=== PATIENT | female | born 1970 | race African-American/Black ===

== ENCOUNTER 2019-06-12 23:22 | Inpatient (IN) | payer OTHER ==
[~2019-06-12] VITALS: Ht 162.6 cm; Wt 113.6 kg
[~2019-06-12 23:22] MED LIST: ALBU2.5V8 INH; AMIT25TA PO; AMLO5TAB10 PO; ASPI-612 PO; BACL10TA PO; CARV12.511 PO; HYDR-2145 PO; ISOS30TA4 PO; LISI10TA2 PO; NAPR-514 PO; NITR0.4T24 SL; POTA20TA4 PO; PRED20TA PO; SERT100T8 PO; TRAZ-118 PO; VENTOLIN HFA18 GM INH
--- NOTE | 2019-06-12 23:35 | PHYS DOC ---
Past Medical History Past Medical History: Angina, Anxiety, Arthritis, Asthma, CHF, COPD, Depression, Hypertension Additional Past Medical Histor: insomnia, Left BBB, stable angina Past Surgical History: Hysterectomy, Other Additional Past Surgical Histo: 2 heart cath without stents, bilat knee repair, PACEMAKER Smoking Status: Current Every Day Smoker Alcohol Use: None Drug Use: None Adult General Chief Complaint Chief Complaint: SHORTNESS OF BREATH HPI HPI 48-year-old female with underlying history of COPD, congestive heart failure, hypertension, PPM placement presents to the emergency department via EMS with complaints of shortness of breath. Patient states she's had shortness of breath over the last couple days worsening today around 10:30 or so. She describes cough, fever, yellow sputum production. States she attempted to use nebulizer t reatments at home however unsuccessful. EMS was called secondary to continued shortness of breath. Upon EMS arrival, room air saturations 88%, attempted nebulizer however patient intolerable. Patient placed on BiPAP with improvement of oxygen saturations 97%. She continues to have tachypnea on examination saturation 90% on room air, 2 L of oxygen applied, respiratory rate in 30s. She denies any chest pain on examination. Nothing makes her symptoms worse, nothing makes her symptoms better. Patient has had some vomiting associated with coughing. Review of Systems Review of Systems Constitutional: fever HENT: nasal congestion Respiratory: Cough/SOB Cardiovascular: No additional information not addressed in HPI [] GI: Denies abdominal pain, nausea, + vomiting, no bloody stools or diarrhea [] : Denies dysuria or hematuria [] Musculoskeletal: Denies back pain or joint pain [] Neurologic: Denies headache, focal weakness or sensory changes [] All other systems were reviewed and found to be within normal limits, except as documented in this note. Current Medications Current Medications Current Medications Medications (Trade) Dose Ordered Sig/Kary Start Time Stop Time Status Last Admin Dose Admin Albuterol/ Ipratropium (Duoneb) 3 ml 1X ONCE 06/12/19 23:45 06/12/19 23:46 DC 06/13/19 00:04 3 ML Furosemide (Lasix) 60 mg 1X ONCE 06/13/19 00:30 06/13/19 00:31 UNV Hydralazine HCl (Apresoline Inj) 10 mg 1X ONCE 06/12/19 23:45 06/12/19 23:46 DC 06/12/19 23:55 10 MG Levofloxacin/ Dextrose 150 ml @ 100 mls/hr 1X ONCE 06/13/19 00:30 06/13/19 01:59 UNV Methylprednisolone Sodium Succinate (SOLU-Medrol 125MG VIAL) 125 mg 1X ONCE 06/12/19 23:45 06/12/19 23:46 DC 06/12/19 23:55 125 MG Allergies Allergies Allergies Coded Allergies Type Severity Reaction Last Updated Verified iodine Allergy Severe IV dye, anaphylaxis 01/29/14 Yes isosorbide Allergy Mild 03/21/16 Yes Physical Exam Physical Exam Constitutional: Well developed, well nourished, mod resp distress, non-toxic appearance. [] HENT: Normocephalic, atraumatic, bilateral external ears normal, oropharynx moist, no oral exudates, nose normal. [] Eyes: PERRLA, EOMI, conjunctiva normal, no discharge. [] Cardiovascular: Tachycardia Lungs & Thorax: exp wheeze, coarse BS throughout Abdomen: Bowel sounds normal, soft, no tenderness, no masses, no pulsatile masses. [] Skin: Warm, dry, no erythema, no rash. [] Extremities: No tenderness, trace edema. [] Neurologic: Alert and oriented X 3, no focal deficits noted. [] Psychologic: Affect normal, judgement normal, mood normal. [] Current Patient Data Vital Signs Vital Signs Date Time Temp Pulse Resp B/P (MAP) Pulse Ox O2 Delivery O2 Flow Rate FiO2 06/13/19 00:05 96 Nasal Cannula 3.0 06/12/19 23:55 99 183/88 06/12/19 23:25 99.1 24 99.1 Lab Values Laboratory Tests Test 06/12/19 23:45 06/12/19 23:48 Influenza Type A Antigen Negative (NEGATIVE) Influenza Type B Antigen Negative (NEGATIVE) White Blood Count 9.2 x10^3/uL (4.0-11.0) Red Blood Count 5.38 x10^6/uL (3.50-5.40) Hemoglobin 14.6 g/dL (12.0-15.5) Hematocrit 44.6 % (36.0-47.0) Mean Corpuscular Volume 83 fL (79-100) Mean Corpuscular Hemoglobin 27 pg (25-35) Mean Corpuscular Hemoglobin Concent 33 g/dL (31-37) Red Cell Distribution Width 14.7 % (11.5-14.5) H Platelet Count 200 x10^3/uL (140-400) Neutrophils (%) (Auto) 81 % (31-73) H Lymphocytes (%) (Auto) 11 % (24-48) L Monocytes (%) (Auto) 7 % (0-9) Eosinophils (%) (Auto) 0 % (0-3) Basophils (%) (Auto) 1 % (0-3) Neutrophils # (Auto) 7.4 x10^3/uL (1.8-7.7) Lymphocytes # (Auto) 1.0 x10^3/uL (1.0-4.8) Monocytes # (Auto) 0.6 x10^3/uL (0.0-1.1) Eosinophils # (Auto) 0.0 x10^3/uL (0.0-0.7) Basophils # (Auto) 0.1 x10^3/uL (0.0-0.2) D-Dimer (Charity) 0.53 ug/mlFEU (0.00-0.50) H Sodium Level 140 mmol/L (136-145) Potassium Level 3.5 mmol/L (3.5-5.1) Chloride Level 102 mmol/L (98-107) Carbon Dioxide Level 28 mmol/L (21-32) Anion Gap 10 (6-14) Blood Urea Nitrogen 13 mg/dL (7-20) Creatinine 1.0 mg/dL (0.6-1.0) Estimated GFR (Cockcroft-Gault) 71.3 BUN/Creatinine Ratio 13 (6-20) Glucose Level 124 mg/dL (70-99) H Calcium Level 8.6 mg/dL (8.5-10.1) Total Bilirubin 0.2 mg/dL (0.2-1.0) Aspartate Amino Transferase (AST) 25 U/L (15-37) Alanine Aminotransferase (ALT) 54 U/L (14-59) Alkaline Phosphatase 85 U/L (46-116) Troponin I Quantitative 0.022 ng/mL (0.000-0.055) LI-Baq-J-Type Natriuretic Peptide 2195 pg/mL (0-124) H Total Protein 6.8 g/dL (6.4-8.2) Albumin 3.5 g/dL (3.4-5.0) Albumin/Globulin Ratio 1.1 (1.0-1.7) Laboratory Tests 06/12/19 23:48 Laboratory Tests 06/12/19 23:48 EKG EKG EKG reviewed 2358, no STEMI, normal axis, sinus rhythm, heart rate 98, no STEMI[] Radiology/Procedures Radiology/Procedures Chest x-ray wet reading reveals evidence of pulmonary edema, bilateral consolidations[] Course & Med Decision Making Course & Med Decision Making Pertinent Labs and Imaging studies reviewed. (See chart for details) []48-year-old female with underlying history of COPD, congestive heart failure, hypertension, PPM placement presents to the emergency department via EMS with complaints of shortness of breath. Patient states she's had shortness of breath over the last couple days worsening today around 10:30 or so. She describes cough, fever, yellow sputum production. States she attempted to use nebulizer treatments at home however unsuccessful. EMS was called secondary to continued shortness of breath. Upon EMS arrival, room air saturations 88%, attempted nebulizer however patient intolerable. Patient placed on BiPAP with improvement of oxygen saturations 97%. She continues to have tachypnea on examination saturation 90% on room air, 2 L of oxygen applied, respiratory rate in 30s. Patient has had some vomiting associated with coughing ABG 7.40, PCO2 36, PO2 55, bicarbonate 28 Patient increased to 4 L nasal cannula saturations 95-97% She received DuoNeb treatment, Solu-Medrol, Lasix 60 mg IV with improvement of tachypnea as well as respiratory distress Labs reviewed white blood cell count 9.2, HemoCue 14.6, d-dimer mildly elevated 0.53, BNP >2000 Plan admit the patient we'll trend her cardiac enzymes, given her d-dimer elevation and alert iodine we'll plan for VQ scan tomorrow. Lovenox 1 mg/kg subcutaneous 1 Discussed findings with patient we'll plan for admission Dragon Disclaimer Dragon Disclaimer This electronic medical record was generated, in whole or in part, using a voice recognition dictation system. Departure Departure Impression: Primary Impression: Acute CHF Additional Impressions: PNA (pneumonia) Elevated d-dimer Hypertension Disposition: ADMITTED INPATIENT Admitting Physician: HIMS Condition: IMPROVED Critical Care Time Critical care time was 40 minutes exclusive of procedures. Problem Qualifiers Primary Impression: Acute CHF Heart failure type: unspecified Qualified Codes: I50.9 - Heart failure, unspecified Additional Impressions: PNA (pneumonia) Pneumonia type: due to unspecified organism Laterality: bilateral Lung location: lower lobe of lung Qualified Codes: J18.9 - Pneumonia, unspecified organism Hypertension Hypertension type: essential hypertension Qualified Codes: I10 - Essential (primary) hypertension RODNEY MCDANIEL MD Jun 12, 2019 23:35
[2019-06-12] MEDS ORDERED: hydrALAZINE 20 MG/ML VIAL. IVP ONE (23:45)
[2019-06-12] MEDS ORDERED: IPRATRPIUM/ALBUTEROL 0.5/2.5MG 3 ML NEBU. NEB ONE (23:45)
[2019-06-12] MEDS ORDERED: methylPREDNISolone SOD SUCC PF 125 MG/2 ML VIAL. IV ONE (23:45)
[2019-06-12 23:57] LABS: BASO # 0.1 x10^3/uL (0.0-0.2); BASO % 1 % (0-3); EOS % 0 % (0-3); HEMATOCRIT 44.6 % (36.0-47.0); HEMOGLOBIN 14.6 g/dL (12.0-15.5); LYMPH % 11 % (24-48); MEAN CORPUSCULAR HEMOGLOBIN 27 pg (25-35); MEAN CORPUSCULAR HGB CONC 33 g/dL (31-37); MEAN CORPUSCULAR VOLUME 83 fL (79-100); MONO # 0.6 x10^3/uL (0.0-1.1); MONO % 7 % (0-9); NEUT # 7.4 x10^3/uL (1.8-7.7); NEUT % 81 % (31-73); PLATELET COUNT 200 x10^3/uL (140-400); RED BLOOD COUNT 5.38 x10^6/uL (3.50-5.40); RED CELL DISTRIBUTION WIDTH 14.7 % (11.5-14.5); WHITE BLOOD COUNT 9.2 x10^3/uL (4.0-11.0)
[2019-06-13 00:06] LABS: CALCIUM 8.6 mg/dL (8.5-10.1); GFR 71.3; POTASSIUM 3.5 mmol/L (3.5-5.1)
[2019-06-13 00:09] LABS: INFLUENZA A PATIENT NEGATIVE (NEGATIVE); INFLUENZA B PATIENT NEGATIVE (NEGATIVE)
[2019-06-13 00:14] LABS: ALBUMIN 3.5 g/dL (3.4-5.0); ALBUMIN/GLOBULIN RATIO 1.1 (1.0-1.7); TOTAL BILIRUBIN 0.2 mg/dL (0.2-1.0); TOTAL PROTEIN 6.8 g/dL (6.4-8.2)
--- NOTE | 2019-06-13 00:41 | RAD ---
PORTABLE CHEST 1V Clinical History: Dyspnea Technique: AP view of the chest was obtained at 06/12/2019 11:28 PM. Comparison: March 21, 2016. Findings: The heart is moderately enlarged. The pulmonary vessels are somewhat cephalized and there is patchy opacities in the lung bases. There is a left-sided defibrillator again seen. Impression: Moderate cardiomegaly and bilateral infiltrates likely CHF. Electronically signed by: Esvin Linares III, MD (06/13/2019 12:38 AM) [id number]
[2019-06-13] MEDS ORDERED: MORPHINE SULFATE 2 MG/ML VIAL. IV PRN (00:45)
[2019-06-13] MEDS ORDERED: ONDANSETRON PF 4 MG/2 ML VIAL. IV PRN (00:45)
[2019-06-13] MEDS ORDERED: FUROSEMIDE 40 MG/4 ML VIAL. IVP ONE (00:45)
[2019-06-13 01:20] LABS: BILIRUBIN,URINE NEGATIVE (NEG); CLARITY,URINE CLOUDY; COLOR,URINE YELLOW; NITRITE,URINE NEGATIVE (NEG); PH,URINE 6.5; PROTEIN,URINE NEGATIVE (NEG-TRACE); UROBILINOGEN,URINE 0.2 mg/dL (0.2 mg/dL)
[2019-06-13 01:25] LABS: BACTERIA,URINE 0 /HPF (0-FEW); RBC,URINE OCC /HPF (0-2); SQUAMOUS EPITHELIAL CELL,UR MOD /LPF; TRICHOMONAS,URINE PRESENT
[2019-06-13 02:54] VITALS: BP 153/80
[2019-06-13] MEDS ORDERED: CARV25TA2 PO (03:07)
[2019-06-13] MEDS ORDERED: MONT10TA11 PO (03:07)
[2019-06-13] MEDS ORDERED: LOSA100T14 PO (03:07)
[2019-06-13] MEDS ORDERED: ATOR80TA72 PO (03:07)
[2019-06-13] MEDS ORDERED: TIOT18CA INH (03:07)
[2019-06-13] MEDS ORDERED: FURO20TA3 PO (03:07)
[2019-06-13] MEDS ORDERED: PARO20TA3 PO (03:07)
[2019-06-13] MEDS ORDERED: MOME13HF INH (03:07)
[2019-06-13 05:02] LABS: BASE EXCESS ABG -2 mmol/L (-3-3); HCO3 ABG 22 mmol/L (21-28); PCO2 ABG 37 mmHg (35-46); PO2 ABG 56 mmHg (75-108); SAT O2 ABG 89 % (92-99)
[2019-06-13 07:00] VITALS: BP 158/77
[2019-06-13] MEDS ORDERED: IPRATRPIUM/ALBUTEROL 0.5/2.5MG 3 ML NEBU. NEB SCH (08:00)
--- NOTE | 2019-06-13 09:59 | RAD ---
Examination: Ventilation/perfusion lung scan Clinical history: shortness of breath COMPARISON: 06/13/2019 chest x-ray TECHNIQUE: 13 mCi of xenon-133 was administered as an aerosol and spot views were obtained on a gamma camera for a nuclear medicine ventilation examination. 5.5 mCi of Tc 99m MAA was administered intravenously and spot views were obtained the gamma camera for a nuclear medicine perfusion examination. Static images were reviewed as a V/Q scan in order to exclude pulmonary embolism. FINDINGS: There is mild diffuse heterogeneity of activity on the ventilation study. There is mild residual activity on the washout phases, suggesting possible air trapping. Perfusion images show 2 large wedge-shaped mismatched defects, most conspicuous in the lingula and in the superior segment right lower lobe. This is borderline high probability (approximately 80 percent) for pulmonary embolism based on the modified PIOPED criteria. Impression: Borderline high probability for pulmonary embolism. FOR INTERNAL CODING PURPOSES Critical result: Findings discussed with patient's nurse Marisa who took the report on behalf of RODNEY MCDANIEL at 06/13/2019 9:52 AM. RESULT CODE: (C) Electronically signed by: Espinoza Mark MD (06/13/2019 9:56 AM) [facility]
[2019-06-13] MEDS ORDERED: ALBUTEROL SULFATE 2.5 MG/3 ML NEBU. INH PRN ×2 (10:00→11:45)
[2019-06-13] MEDS ORDERED: NITROGLYCERIN SUBLINGUAL 0.4 MG BOTTLE OF 25. SL PRN (10:00)
[2019-06-13] MEDS ORDERED: traZODone 50 MG TABLET. PO PRN (10:00)
[2019-06-13] MEDS: BUMETANIDE 1 MG/4 ML VIAL. IV SCH ×2 (10:58→16:13)
[2019-06-13 11:00] VITALS: BP 187/78
[2019-06-13] MEDS: IPRATRPIUM/ALBUTEROL 0.5/2.5MG 3 ML NEBU. NEB SCH ×3 (11:11→20:12)
--- NOTE | 2019-06-13 11:18 | PDOC1 ---
History and Physical Date of Admission Date of Admission 06/13/2019 Identification/Chief Complaint Problems: (1) Acute CHF Source Source: Chart review, Patient History of Present Illness History of Present Illness Patient is a 48-year-old female with past medical history of congestive heart failure hypertension COPD permanent pacemaker who comes complaining of shortness of breath. Patient refers having noticed worsening of her dyspnea over the last 3 days prior to her admission. She denies sick contacts nevertheless she has been having diaphoresis no fever has been quantified at home. She does report dietary transgressions and medication nonadherence. She tried to self medicate at home with nebulization therapy nevertheless her dyspnea got worse reason why she decided to call EMS yesterday when she could not open "catch her breath". In the emergency department recorded that her oxygen saturation was 88% she was placed on BiPAP at that time which patient tells me she could not stand. She denies any chest discomfort no palpitations no nausea vomiting no sensation of impending doom except when placed on BiPAP machine. At the time my evaluation the patient is much more awake and with easier brought work of breathing. She is not on BiPAP at time my evaluation she denies chest pain no nausea no vomiting no other symptoms reported. Results of her testing were discussed with the patient plan of care explained detail reassurance has been provided Past Medical History Cardiovascular: CHF, HTN Pulmonary: COPD Current Problem List Problem List Problems Medical Problems: (1) Acute CHF Status: Acute (2) Elevated d-dimer Status: Acute (3) Hypertension Status: Acute (4) PNA (pneumonia) Status: Acute Current Medications Current Medications Current Medications Medications (Trade) Dose Ordered Sig/Kary Start Time Stop Time Status Last Admin Dose Admin Albuterol Sulfate (Ventolin Neb Soln) 8.5 mg PRN Q4HRS PRN 06/13/19 10:00 Albuterol/ Ipratropium (Duoneb) 3 ml RTQID 06/13/19 12:00 Amitriptyline HCl (Elavil) 25 mg HS 06/13/19 21:00 Atorvastatin Calcium (Lipitor) 80 mg QHS 06/13/19 21:00 Budesonide (Pulmicort) 0.5 mg RTBID 06/13/19 12:00 Bumetanide (Bumex) 1 mg [id number] 06/13/19 10:00 06/13/19 10:58 1 MG Carvedilol (Coreg) 25 mg [id number] 06/13/19 11:00 Cyclobenzaprine HCl (Flexeril) 10 mg TID 06/13/19 14:00 Enoxaparin Sodium (Lovenox 100mg Syringe) 100 mg Q12HR 06/13/19 10:00 06/13/19 10:58 100 MG Furosemide (Lasix) 60 mg 1X ONCE 06/13/19 00:45 06/13/19 00:46 DC 06/13/19 01:19 60 MG Hydralazine HCl (Apresoline Inj) 10 mg 1X ONCE 06/12/19 23:45 06/12/19 23:46 DC 06/12/19 23:55 10 MG Levofloxacin/ Dextrose 150 ml @ 100 mls/hr 1X ONCE 06/13/19 00:45 06/13/19 02:14 DC 06/13/19 01:17 100 MLS/HR Losartan Potassium (Cozaar) 100 mg DAILY 06/13/19 11:00 Methylprednisolone Sodium Succinate (SOLU-Medrol 125MG VIAL) 125 mg 1X ONCE 06/12/19 23:45 06/12/19 23:46 DC 06/12/19 23:55 125 MG Montelukast Sodium (Singulair) 10 mg HS 06/13/19 21:00 Morphine Sulfate (Morphine Sulfate) 2 mg PRN Q2HR PRN 06/13/19 00:45 06/14/19 00:44 Naproxen (Naprosyn) 500 mg PRN Q12HR PRN 06/13/19 10:00 Nitroglycerin (Nitrostat) 0.4 mg PRN Q5MIN PRN 06/13/19 10:00 Non-Formulary Medication (Mometasone/ Formoterol (Dulera 200 Mcg/5 Mcg Inhaler)) 1 puff BID 06/13/19 21:00 UNV Non-Formulary Medication (Tiotropium [place] (Spiriva)) 1 puff DAILY 06/14/19 09:00 UNV Ondansetron HCl (Zofran) 4 mg PRN Q8HRS PRN 06/13/19 00:45 06/14/19 00:44 Paroxetine HCl (Paxil) 20 mg DAILY 06/13/19 11:00 Potassium Chloride (Klor-Con) 20 meq DAILY 06/13/19 11:00 Trazodone HCl (Desyrel) 25 mg PRN QHS PRN 06/13/19 10:00 Allergies Allergies Allergies Coded Allergies Type Severity Reaction Last Updated Verified iodine Allergy Severe IV dye, anaphylaxis 01/29/14 Yes isosorbide Allergy Mild 03/21/16 Yes ROS Review of System CONSTITUTIONAL: No fever or chills EYES: No recent changes SKIN: No rash or itching CARDIOVASCULAR: No chest pain, syncope, palpitations, or edema RESPIRATORY: No SOB or cough GASTROINTESTINAL: No nausea, vomiting or abdominal pain NEUROLOGICAL: No headaches or weakness ENDOCRINE: No cold or heat intolerance GENITOURINARY: No urgency or frequency of urination MUSCULOSKELETAL: No back pain or joint pain LYMPHATICS: No enlarged lymph nodes PSYCHIATRIC: No anxiety or depression Physical Exam Physical Exam Gen.: well-developed well-nourished in no apparent distress Head: Normal shape atraumatic Eyes: Pupils equal reactive to light and accommodation, normal conjunctivae and lids Ears: Normal shape Nose: Normal shape no trauma Mouth: No exudates of the back of throat no thrush no lesions Neck: Supple no JVD no carotid bruit or lymphadenopathy no thyromegaly Chest: Lungs clear to auscultation with good inspiratory effort no crackles rales or rhonchi Cardiovascular: S1-S2 regular rhythm no murmurs gallops or rubs Abdomen: Bowel sounds present soft nontender no hepatosplenomegaly appreciated sign Extremities: No clubbing no cyanosis no edema peripheral pulses palpated bilaterally Neurological: Alert awake oriented in person time place and situation, cranial nerves II through XII intact, no motor or sensory deficits appreciated Psych: Appropriate mood, cooperative Vitals Vitals Vital Signs Date Time Temp Pulse Resp B/P (MAP) Pulse Ox O2 Delivery O2 Flow Rate FiO2 06/13/19 08:04 96 Nasal Cannula 3.0 06/13/19 07:00 98.7 83 18 158/77 (104) 98.7 Labs Labs Laboratory Tests Test 06/12/19 23:30 06/12/19 23:45 06/12/19 23:48 06/13/19 01:05 O2 Saturation 89 % (92-99) Arterial Blood pH 7.40 (7.35-7.45) Arterial Blood pCO2 at Patient Temp 37 mmHg (35-46) Arterial Blood pO2 at Patient Temp 56 mmHg (75-108) Arterial Blood HCO3 22 mmol/L (21-28) Arterial Blood Base Excess -2 mmol/L (-3-3) Influenza Type A Antigen Negative (NEGATIVE) Influenza Type B Antigen Negative (NEGATIVE) White Blood Count 9.2 x10^3/uL (4.0-11.0) Red Blood Count 5.38 x10^6/uL (3.50-5.40) Hemoglobin 14.6 g/dL (12.0-15.5) Hematocrit 44.6 % (36.0-47.0) Mean Corpuscular Volume 83 fL (79-100) Mean Corpuscular Hemoglobin 27 pg (25-35) Mean Corpuscular Hemoglobin Concent 33 g/dL (31-37) Red Cell Distribution Width 14.7 % (11.5-14.5) Platelet Count 200 x10^3/uL (140-400) Neutrophils (%) (Auto) 81 % (31-73) Lymphocytes (%) (Auto) 11 % (24-48) Monocytes (%) (Auto) 7 % (0-9) Eosinophils (%) (Auto) 0 % (0-3) Basophils (%) (Auto) 1 % (0-3) Neutrophils # (Auto) 7.4 x10^3/uL (1.8-7.7) Lymphocytes # (Auto) 1.0 x10^3/uL (1.0-4.8) Monocytes # (Auto) 0.6 x10^3/uL (0.0-1.1) Eosinophils # (Auto) 0.0 x10^3/uL (0.0-0.7) Basophils # (Auto) 0.1 x10^3/uL (0.0-0.2) D-Dimer (Charity) 0.53 ug/mlFEU (0.00-0.50) Sodium Level 140 mmol/L (136-145) Potassium Level 3.5 mmol/L (3.5-5.1) Chloride Level 102 mmol/L (98-107) Carbon Dioxide Level 28 mmol/L (21-32) Anion Gap 10 (6-14) Blood Urea Nitrogen 13 mg/dL (7-20) Creatinine 1.0 mg/dL (0.6-1.0) Estimated GFR (Cockcroft-Gault) 71.3 BUN/Creatinine Ratio 13 (6-20) Glucose Level 124 mg/dL (70-99) Calcium Level 8.6 mg/dL (8.5-10.1) Total Bilirubin 0.2 mg/dL (0.2-1.0) Aspartate Amino Transf (AST/SGOT) 25 U/L (15-37) Alanine Aminotransferase (ALT/SGPT) 54 U/L (14-59) Alkaline Phosphatase 85 U/L (46-116) Troponin I Quantitative 0.022 ng/mL (0.000-0.055) OW-Twf-F-Type Natriuretic Peptide 2195 pg/mL (0-124) Total Protein 6.8 g/dL (6.4-8.2) Albumin 3.5 g/dL (3.4-5.0) Albumin/Globulin Ratio 1.1 (1.0-1.7) Urine Collection Type Unknown Urine Color Yellow Urine Clarity Cloudy Urine pH 6.5 Urine Specific [place] 1.010 Urine Protein Negative mg/dL (NEG-TRACE) Urine Glucose (UA) Negative mg/dL (NEG) Urine Ketones (Stick) Negative mg/dL (NEG) Urine Blood Negative (NEG) Urine Nitrite Negative (NEG) Urine Bilirubin Negative (NEG) Urine Urobilinogen Dipstick 0.2 mg/dL (0.2 mg/dL) Urine Leukocyte Esterase Negative (NEG) Urine RBC Occ /HPF (0-2) Urine WBC 1-4 /HPF (0-4) Urine Squamous Epithelial Cells Mod /LPF Urine Bacteria 0 /HPF (0-FEW) Urine Mucus Slight /LPF Urine Trichomonas Present Test 06/13/19 07:15 Troponin I Quantitative < 0.017 ng/mL (0.000-0.055) Laboratory Tests Test 06/12/19 23:30 06/12/19 23:45 06/12/19 23:48 06/13/19 01:05 O2 Saturation 89 % (92-99) Arterial Blood pH 7.40 (7.35-7.45) Arterial Blood pCO2 at Patient Temp 37 mmHg (35-46) Arterial Blood pO2 at Patient Temp 56 mmHg (75-108) Arterial Blood HCO3 22 mmol/L (21-28) Arterial Blood Base Excess -2 mmol/L (-3-3) Influenza Type A Antigen Negative (NEGATIVE) Influenza Type B Antigen Negative (NEGATIVE) White Blood Count 9.2 x10^3/uL (4.0-11.0) Red Blood Count 5.38 x10^6/uL (3.50-5.40) Hemoglobin 14.6 g/dL (12.0-15.5) Hematocrit 44.6 % (36.0-47.0) Mean Corpuscular Volume 83 fL (79-100) Mean Corpuscular Hemoglobin 27 pg (25-35) Mean Corpuscular Hemoglobin Concent 33 g/dL (31-37) Red Cell Distribution Width 14.7 % (11.5-14.5) Platelet Count 200 x10^3/uL (140-400) Neutrophils (%) (Auto) 81 % (31-73) Lymphocytes (%) (Auto) 11 % (24-48) Monocytes (%) (Auto) 7 % (0-9) Eosinophils (%) (Auto) 0 % (0-3) Basophils (%) (Auto) 1 % (0-3) Neutrophils # (Auto) 7.4 x10^3/uL (1.8-7.7) Lymphocytes # (Auto) 1.0 x10^3/uL (1.0-4.8) Monocytes # (Auto) 0.6 x10^3/uL (0.0-1.1) Eosinophils # (Auto) 0.0 x10^3/uL (0.0-0.7) Basophils # (Auto) 0.1 x10^3/uL (0.0-0.2) D-Dimer (Charity) 0.53 ug/mlFEU (0.00-0.50) Sodium Level 140 mmol/L (136-145) Potassium Level 3.5 mmol/L (3.5-5.1) Chloride Level 102 mmol/L (98-107) Carbon Dioxide Level 28 mmol/L (21-32) Anion Gap 10 (6-14) Blood Urea Nitrogen 13 mg/dL (7-20) Creatinine 1.0 mg/dL (0.6-1.0) Estimated GFR (Cockcroft-Gault) 71.3 BUN/Creatinine Ratio 13 (6-20) Glucose Level 124 mg/dL (70-99) Calcium Level 8.6 mg/dL (8.5-10.1) Total Bilirubin 0.2 mg/dL (0.2-1.0) Aspartate Amino Transf (AST/SGOT) 25 U/L (15-37) Alanine Aminotransferase (ALT/SGPT) 54 U/L (14-59) Alkaline Phosphatase 85 U/L (46-116) Troponin I Quantitative 0.022 ng/mL (0.000-0.055) SY-Mob-M-Type Natriuretic Peptide 2195 pg/mL (0-124) Total Protein 6.8 g/dL (6.4-8.2) Albumin 3.5 g/dL (3.4-5.0) Albumin/Globulin Ratio 1.1 (1.0-1.7) Urine Collection Type Unknown Urine Color Yellow Urine Clarity Cloudy Urine pH 6.5 Urine Specific [place] 1.010 Urine Protein Negative mg/dL (NEG-TRACE) Urine Glucose (UA) Negative mg/dL (NEG) Urine Ketones (Stick) Negative mg/dL (NEG) Urine Blood Negative (NEG) Urine Nitrite Negative (NEG) Urine Bilirubin Negative (NEG) Urine Urobilinogen Dipstick 0.2 mg/dL (0.2 mg/dL) Urine Leukocyte Esterase Negative (NEG) Urine RBC Occ /HPF (0-2) Urine WBC 1-4 /HPF (0-4) Urine Squamous Epithelial Cells Mod /LPF Urine Bacteria 0 /HPF (0-FEW) Urine Mucus Slight /LPF Urine Trichomonas Present Test 06/13/19 07:15 Troponin I Quantitative < 0.017 ng/mL (0.000-0.055) VTE Prophylaxis Ordered VTE Prophylaxis Devices: No VTE Pharmacological Prophylaxi: Yes Assessment/Plan Assessment/Plan Acute exacerbation of congestive heart failure suspect systolic dysfunction VQ scan with high probability of pulmonary embolism History of tobacco abuse and subsequent COPD Essential hypertension Mild elevation of troponin most likely demand ischemia and most likely secondary to pulmonary emboli Unable to perform CTA due to iodine allergy Plan: Diuretic therapy We'll start Lovenox We'll discuss with patient possibility of transitioning to an anti-10 A agent for ease of use Resume home medications Monitor respiratory status Further recommendations based on the clinical course Dietary counseling done DVT prophylaxis: Patient on full dose of Lovenox Problem Qualifiers (1) Acute CHF: Heart failure type: unspecified Qualified Codes: I50.9 - Heart failure, unspecified MARINA MEDINA MD Jun 13, 2019 11:18
[2019-06-13] MEDS: PARoxetine 20 MG TABLET PO SCH (11:33)
[2019-06-13] MEDS: LOSARTAN POTASSIUM 50 MG TABLET. PO SCH (11:33)
[2019-06-13] MEDS: POTASSIUM CHLORIDE 20 MEQ TABLET.ER. PO SCH (11:33)
[2019-06-13] MEDS: CARVEDILOL 12.5 MG TABLET. PO SCH ×2 (11:34→17:51)
[2019-06-13] MEDS: CYCLOBENZAPRINE 10 MG TABLET. PO SCH ×2 (14:00→21:02)
[2019-06-13 15:00] VITALS: BP 161/78
[2019-06-13] MEDS: BUDESONIDE 0.5 MG/2 ML NEBU. NEB SCH ×2 (15:20→20:12)
[2019-06-13 19:00] VITALS: BP 120/84
[2019-06-13] MEDS ORDERED: NON FORMULARY ITEM (Mometasone/Formoterol (Dulera 200 Mcg/5 Mcg Inhaler) 1 PUFF) INH SCH (21:00)
[2019-06-13] MEDS: AMITRIPTYLINE HCL 25 MG TABLET. PO SCH (21:02)
[2019-06-13] MEDS: ATORVASTATIN CALCIUM 40 MG TABLET. PO SCH (21:02)
[2019-06-13] MEDS: MONTELUKAST SODIUM 10 MG TABLET. PO SCH (21:02)
[2019-06-13 23:13] VITALS: BP 136/68
[2019-06-14 03:00] VITALS: BP 132/66
[2019-06-14 05:25] LABS: BASO % 0 % (0-3); EOS % 0 % (0-3); HEMATOCRIT 47.1 % (36.0-47.0); HEMOGLOBIN 15.4 g/dL (12.0-15.5); LYMPH # 1.2 x10^3/uL (1.0-4.8); LYMPH % 16 % (24-48); MEAN CORPUSCULAR HEMOGLOBIN 27 pg (25-35); MEAN CORPUSCULAR HGB CONC 33 g/dL (31-37); MEAN CORPUSCULAR VOLUME 83 fL (79-100); MONO # 0.9 x10^3/uL (0.0-1.1); MONO % 13 % (0-9); NEUT # 5.1 x10^3/uL (1.8-7.7); NEUT % 70 % (31-73); PLATELET COUNT 216 x10^3/uL (140-400); RED BLOOD COUNT 5.66 x10^6/uL (3.50-5.40); RED CELL DISTRIBUTION WIDTH 14.5 % (11.5-14.5); WHITE BLOOD COUNT 7.2 x10^3/uL (4.0-11.0)
[2019-06-14 05:56] LABS: ALBUMIN 2.9 g/dL (3.4-5.0); ALBUMIN/GLOBULIN RATIO 0.7 (1.0-1.7); CALCIUM 8.8 mg/dL (8.5-10.1); CREATININE 1.3 mg/dL (0.6-1.0); GFR 52.7; POTASSIUM 3.6 mmol/L (3.5-5.1); TOTAL BILIRUBIN 0.3 mg/dL (0.2-1.0); TOTAL PROTEIN 6.8 g/dL (6.4-8.2)
[2019-06-14] MEDS ORDERED: metroNIDAZOLE 500 MG TABLET PO ONE (07:15)
--- NOTE | 2019-06-14 07:52 | PDOC ---
PROGRESS NOTES Chief Complaint Chief Complaint Acute exacerbation of congestive heart failure suspect systolic dysfunction VQ scan with high probability of pulmonary embolism History of tobacco abuse and subsequent COPD Essential hypertension Mild elevation of troponin most likely demand ischemia and most likely secondary to pulmonary emboli Unable to perform CTA due to iodine allergy Plan: Diuretic therapy Lovenox start coumadin today, she will need assitance since she does not carry insurance. continue steroids insulin for steroid induced hyperglycemia Resume home medications Monitor respiratory status Further recommendations based on the clinical course Dietary counseling done DVT prophylaxis: Patient on full dose of Lovenox History of Present Illness History of Present Illness Seems to be about the same her to yesterday. Patient denies chest pain no fever or chills reported overnight. Seems like her pulmonary embolism is aggravated by her underlying COPD and tobacco abuse. Vitals Vitals Vital Signs Date Time Temp Pulse Resp B/P (MAP) Pulse Ox O2 Delivery O2 Flow Rate FiO2 06/14/19 03:00 99.5 24 132/66 (88) 93 Nasal Cannula 2.0 99.5 06/13/19 23:13 71 Physical Exam Physical Exam Gen.: well-developed well-nourished in no apparent distress Head: Normal shape atraumatic Eyes: Pupils equal reactive to light and accommodation, normal conjunctivae and lids Ears: Normal shape Nose: Normal shape no trauma Mouth: No exudates of the back of throat no thrush no lesions Neck: Supple no JVD no carotid bruit or lymphadenopathy no thyromegaly Chest: Lungs clear to auscultation with good inspiratory effort no crackles rales or rhonchi Cardiovascular: S1-S2 regular rhythm no murmurs gallops or rubs Abdomen: Bowel sounds present soft nontender no hepatosplenomegaly appreciated sign Extremities: No clubbing no cyanosis no edema peripheral pulses palpated bilaterally Neurological: Alert awake oriented in person time place and situation, cranial nerves II through XII intact, no motor or sensory deficits appreciated Psych: Appropriate mood, cooperative Labs LABS Laboratory Tests Test 06/14/19 05:00 06/14/19 05:10 Sodium Level 140 mmol/L (136-145) Potassium Level 3.6 mmol/L (3.5-5.1) Chloride Level 101 mmol/L (98-107) Carbon Dioxide Level 32 mmol/L (21-32) Anion Gap 7 (6-14) Blood Urea Nitrogen 22 mg/dL (7-20) Creatinine 1.3 mg/dL (0.6-1.0) Estimated GFR (Cockcroft-Gault) 52.7 BUN/Creatinine Ratio 17 (6-20) Glucose Level 100 mg/dL (70-99) Calcium Level 8.8 mg/dL (8.5-10.1) Total Bilirubin 0.3 mg/dL (0.2-1.0) Aspartate Amino Transf (AST/SGOT) 19 U/L (15-37) Alanine Aminotransferase (ALT/SGPT) 37 U/L (14-59) Alkaline Phosphatase 72 U/L (46-116) Total Protein 6.8 g/dL (6.4-8.2) Albumin 2.9 g/dL (3.4-5.0) Albumin/Globulin Ratio 0.7 (1.0-1.7) White Blood Count 7.2 x10^3/uL (4.0-11.0) Red Blood Count 5.66 x10^6/uL (3.50-5.40) Hemoglobin 15.4 g/dL (12.0-15.5) Hematocrit 47.1 % (36.0-47.0) Mean Corpuscular Volume 83 fL (79-100) Mean Corpuscular Hemoglobin 27 pg (25-35) Mean Corpuscular Hemoglobin Concent 33 g/dL (31-37) Red Cell Distribution Width 14.5 % (11.5-14.5) Platelet Count 216 x10^3/uL (140-400) Neutrophils (%) (Auto) 70 % (31-73) Lymphocytes (%) (Auto) 16 % (24-48) Monocytes (%) (Auto) 13 % (0-9) Eosinophils (%) (Auto) 0 % (0-3) Basophils (%) (Auto) 0 % (0-3) Neutrophils # (Auto) 5.1 x10^3/uL (1.8-7.7) Lymphocytes # (Auto) 1.2 x10^3/uL (1.0-4.8) Monocytes # (Auto) 0.9 x10^3/uL (0.0-1.1) Eosinophils # (Auto) 0.0 x10^3/uL (0.0-0.7) Basophils # (Auto) 0.0 x10^3/uL (0.0-0.2) Assessment and Plan Assessmemt and Plan Problems Medical Problems: (1) Acute CHF Status: Acute (2) Elevated d-dimer Status: Acute (3) Hypertension Status: Acute (4) PNA (pneumonia) Status: Acute Comment Review of Relevant I have reviewed the following items mary (where applicable) has been applied. Labs Laboratory Tests Test 06/12/19 23:30 06/12/19 23:45 06/12/19 23:48 06/13/19 01:05 O2 Saturation 89 % (92-99) Arterial Blood pH 7.40 (7.35-7.45) Arterial Blood pCO2 at Patient Temp 37 mmHg (35-46) Arterial Blood pO2 at Patient Temp 56 mmHg (75-108) Arterial Blood HCO3 22 mmol/L (21-28) Arterial Blood Base Excess -2 mmol/L (-3-3) Influenza Type A Antigen Negative (NEGATIVE) Influenza Type B Antigen Negative (NEGATIVE) White Blood Count 9.2 x10^3/uL (4.0-11.0) Red Blood Count 5.38 x10^6/uL (3.50-5.40) Hemoglobin 14.6 g/dL (12.0-15.5) Hematocrit 44.6 % (36.0-47.0) Mean Corpuscular Volume 83 fL (79-100) Mean Corpuscular Hemoglobin 27 pg (25-35) Mean Corpuscular Hemoglobin Concent 33 g/dL (31-37) Red Cell Distribution Width 14.7 % (11.5-14.5) Platelet Count 200 x10^3/uL (140-400) Neutrophils (%) (Auto) 81 % (31-73) Lymphocytes (%) (Auto) 11 % (24-48) Monocytes (%) (Auto) 7 % (0-9) Eosinophils (%) (Auto) 0 % (0-3) Basophils (%) (Auto) 1 % (0-3) Neutrophils # (Auto) 7.4 x10^3/uL (1.8-7.7) Lymphocytes # (Auto) 1.0 x10^3/uL (1.0-4.8) Monocytes # (Auto) 0.6 x10^3/uL (0.0-1.1) Eosinophils # (Auto) 0.0 x10^3/uL (0.0-0.7) Basophils # (Auto) 0.1 x10^3/uL (0.0-0.2) D-Dimer (Charity) 0.53 ug/mlFEU (0.00-0.50) Sodium Level 140 mmol/L (136-145) Potassium Level 3.5 mmol/L (3.5-5.1) Chloride Level 102 mmol/L (98-107) Carbon Dioxide Level 28 mmol/L (21-32) Anion Gap 10 (6-14) Blood Urea Nitrogen 13 mg/dL (7-20) Creatinine 1.0 mg/dL (0.6-1.0) Estimated GFR (Cockcroft-Gault) 71.3 BUN/Creatinine Ratio 13 (6-20) Glucose Level 124 mg/dL (70-99) Calcium Level 8.6 mg/dL (8.5-10.1) Total Bilirubin 0.2 mg/dL (0.2-1.0) Aspartate Amino Transf (AST/SGOT) 25 U/L (15-37) Alanine Aminotransferase (ALT/SGPT) 54 U/L (14-59) Alkaline Phosphatase 85 U/L (46-116) Troponin I Quantitative 0.022 ng/mL (0.000-0.055) RQ-Hkj-P-Type Natriuretic Peptide 2195 pg/mL (0-124) Total Protein 6.8 g/dL (6.4-8.2) Albumin 3.5 g/dL (3.4-5.0) Albumin/Globulin Ratio 1.1 (1.0-1.7) Urine Collection Type Unknown Urine Color Yellow Urine Clarity Cloudy Urine pH 6.5 Urine Specific [place] 1.010 Urine Protein Negative mg/dL (NEG-TRACE) Urine Glucose (UA) Negative mg/dL (NEG) Urine Ketones (Stick) Negative mg/dL (NEG) Urine Blood Negative (NEG) Urine Nitrite Negative (NEG) Urine Bilirubin Negative (NEG) Urine Urobilinogen Dipstick 0.2 mg/dL (0.2 mg/dL) Urine Leukocyte Esterase Negative (NEG) Urine RBC Occ /HPF (0-2) Urine WBC 1-4 /HPF (0-4) Urine Squamous Epithelial Cells Mod /LPF Urine Bacteria 0 /HPF (0-FEW) Urine Mucus Slight /LPF Urine Trichomonas Present Test 06/13/19 07:15 06/14/19 05:00 06/14/19 05:10 Troponin I Quantitative < 0.017 ng/mL (0.000-0.055) Sodium Level 140 mmol/L (136-145) Potassium Level 3.6 mmol/L (3.5-5.1) Chloride Level 101 mmol/L (98-107) Carbon Dioxide Level 32 mmol/L (21-32) Anion Gap 7 (6-14) Blood Urea Nitrogen 22 mg/dL (7-20) Creatinine 1.3 mg/dL (0.6-1.0) Estimated GFR (Cockcroft-Gault) 52.7 BUN/Creatinine Ratio 17 (6-20) Glucose Level 100 mg/dL (70-99) Calcium Level 8.8 mg/dL (8.5-10.1) Total Bilirubin 0.3 mg/dL (0.2-1.0) Aspartate Amino Transf (AST/SGOT) 19 U/L (15-37) Alanine Aminotransferase (ALT/SGPT) 37 U/L (14-59) Alkaline Phosphatase 72 U/L (46-116) Total Protein 6.8 g/dL (6.4-8.2) Albumin 2.9 g/dL (3.4-5.0) Albumin/Globulin Ratio 0.7 (1.0-1.7) White Blood Count 7.2 x10^3/uL (4.0-11.0) Red Blood Count 5.66 x10^6/uL (3.50-5.40) Hemoglobin 15.4 g/dL (12.0-15.5) Hematocrit 47.1 % (36.0-47.0) Mean Corpuscular Volume 83 fL (79-100) Mean Corpuscular Hemoglobin 27 pg (25-35) Mean Corpuscular Hemoglobin Concent 33 g/dL (31-37) Red Cell Distribution Width 14.5 % (11.5-14.5) Platelet Count 216 x10^3/uL (140-400) Neutrophils (%) (Auto) 70 % (31-73) Lymphocytes (%) (Auto) 16 % (24-48) Monocytes (%) (Auto) 13 % (0-9) Eosinophils (%) (Auto) 0 % (0-3) Basophils (%) (Auto) 0 % (0-3) Neutrophils # (Auto) 5.1 x10^3/uL (1.8-7.7) Lymphocytes # (Auto) 1.2 x10^3/uL (1.0-4.8) Monocytes # (Auto) 0.9 x10^3/uL (0.0-1.1) Eosinophils # (Auto) 0.0 x10^3/uL (0.0-0.7) Basophils # (Auto) 0.0 x10^3/uL (0.0-0.2) Laboratory Tests Test 06/14/19 05:00 06/14/19 05:10 Sodium Level 140 mmol/L (136-145) Potassium Level 3.6 mmol/L (3.5-5.1) Chloride Level 101 mmol/L (98-107) Carbon Dioxide Level 32 mmol/L (21-32) Anion Gap 7 (6-14) Blood Urea Nitrogen 22 mg/dL (7-20) Creatinine 1.3 mg/dL (0.6-1.0) Estimated GFR (Cockcroft-Gault) 52.7 BUN/Creatinine Ratio 17 (6-20) Glucose Level 100 mg/dL (70-99) Calcium Level 8.8 mg/dL (8.5-10.1) Total Bilirubin 0.3 mg/dL (0.2-1.0) Aspartate Amino Transf (AST/SGOT) 19 U/L (15-37) Alanine Aminotransferase (ALT/SGPT) 37 U/L (14-59) Alkaline Phosphatase 72 U/L (46-116) Total Protein 6.8 g/dL (6.4-8.2) Albumin 2.9 g/dL (3.4-5.0) Albumin/Globulin Ratio 0.7 (1.0-1.7) White Blood Count 7.2 x10^3/uL (4.0-11.0) Red Blood Count 5.66 x10^6/uL (3.50-5.40) Hemoglobin 15.4 g/dL (12.0-15.5) Hematocrit 47.1 % (36.0-47.0) Mean Corpuscular Volume 83 fL (79-100) Mean Corpuscular Hemoglobin 27 pg (25-35) Mean Corpuscular Hemoglobin Concent 33 g/dL (31-37) Red Cell Distribution Width 14.5 % (11.5-14.5) Platelet Count 216 x10^3/uL (140-400) Neutrophils (%) (Auto) 70 % (31-73) Lymphocytes (%) (Auto) 16 % (24-48) Monocytes (%) (Auto) 13 % (0-9) Eosinophils (%) (Auto) 0 % (0-3) Basophils (%) (Auto) 0 % (0-3) Neutrophils # (Auto) 5.1 x10^3/uL (1.8-7.7) Lymphocytes # (Auto) 1.2 x10^3/uL (1.0-4.8) Monocytes # (Auto) 0.9 x10^3/uL (0.0-1.1) Eosinophils # (Auto) 0.0 x10^3/uL (0.0-0.7) Basophils # (Auto) 0.0 x10^3/uL (0.0-0.2) Medications Current Medications Albuterol/ Ipratropium (Duoneb) 3 ml 1X ONCE NEB Last administered on 06/13/19at 00:04; Start 06/12/19 at 23:45; Stop 06/12/19 at 23:46; Status DC Methylprednisolone Sodium Succinate (SOLU-Medrol 125MG VIAL) 125 mg 1X ONCE IV Last administered on 06/12/19at 23:55; Start 06/12/19 at 23:45; Stop 06/12/19 at 23:46; Status DC Hydralazine HCl (Apresoline Inj) 10 mg 1X ONCE IVP Last administered on 06/12/19at 23:55; Start 06/12/19 at 23:45; Stop 06/12/19 at 23:46; Status DC Furosemide (Lasix) 60 mg 1X ONCE IVP Last administered on 06/13/19at 01:19; Start 06/13/19 at 00:45; Stop 06/13/19 at 00:46; Status DC Levofloxacin/ Dextrose 150 ml @ 100 mls/hr 1X ONCE IV Last administered on 06/13/19at 01:17; Start 06/13/19 at 00:45; Stop 06/13/19 at 02:14; Status DC Ondansetron HCl (Zofran) 4 mg PRN Q8HRS PRN IV NAUSEA/VOMITING; Start 06/13/19 at 00:45; Stop 06/14/19 at 00:44; Status DC Morphine Sulfate (Morphine Sulfate) 2 mg PRN Q2HR PRN IV PAIN; Start 06/13/19 at 00:45; Stop 06/14/19 at 00:44; Status DC Albuterol/ Ipratropium (Duoneb) 3 ml RTQID NEB Last administered on 06/13/19at 08:02; Start 06/13/19 at 08:00; Stop 06/13/19 at 10:35; Status DC Enoxaparin Sodium (Lovenox 100mg Syringe) 100 mg 1X ONCE SQ Last administered on 06/13/19at 01:17; Start 06/13/19 at 00:45; Stop 06/13/19 at 00:46; Status DC Albuterol Sulfate (Ventolin Neb Soln) 8.5 mg PRN Q4HRS PRN INH SHORTNESS OF BREATH; Start 06/13/19 at 10:00; Stop 06/13/19 at 11:34; Status DC Amitriptyline HCl (Elavil) 25 mg HS PO Last administered on 06/13/19at 21:02; Start 06/13/19 at 21:00 Montelukast Sodium (Singulair) 10 mg HS PO Last administered on 06/13/19at 21:02; Start 06/13/19 at 21:00 Naproxen (Naprosyn) 500 mg PRN Q12HR PRN PO PAIN; Start 06/13/19 at 10:00 Nitroglycerin (Nitrostat) 0.4 mg PRN Q5MIN PRN SL CHEST PAIN; Start 06/13/19 at 10:00 Paroxetine HCl (Paxil) 20 mg DAILY PO Last administered on 06/13/19at 11:33; Start 06/13/19 at 11:00 Potassium Chloride (Klor-Con) 20 meq DAILY PO Last administered on 06/13/19at 11:33; Start 06/13/19 at 11:00 Trazodone HCl (Desyrel) 25 mg PRN QHS PRN PO INSOMNIA; Start 06/13/19 at 10:00 Atorvastatin Calcium (Lipitor) 80 mg QHS PO Last administered on 06/13/19 21:02; Start 06/13/19 at 21:00 Cyclobenzaprine HCl (Flexeril) 10 mg TID PO Last administered on 06/13/19 21:02; Start 06/13/19 at 14:00 Carvedilol (Coreg) 25 mg BIDWMEALS PO Last administered on 06/13/19 17:51; Start 06/13/19 at 11:00 Losartan Potassium (Cozaar) 100 mg DAILY PO Last administered on 06/13/19 11:33; Start 06/13/19 at 11:00 Non-Formulary Medication (Mometasone/ Formoterol (Dulera 200 Mcg/5 Mcg Inhaler)) 1 puff BID INH ; Start 06/13/19 at 21:00; Status UNV Non-Formulary Medication (Tiotropium Ulysses (Spiriva)) 1 puff DAILY INH ; Start 06/14/19 at 09:00; Status UNV Bumetanide (Bumex) 1 mg BID92 IV Last administered on 06/13/19at 16:13; Start 06/13/19 at 10:00 Enoxaparin Sodium (Lovenox 100mg Syringe) 100 mg Q12HR SQ Last administered on 06/13/19 21:01; Start 06/13/19 at 10:00 Albuterol/ Ipratropium (Duoneb) 3 ml RTQID NEB Last administered on 06/13/19at 20:12; Start 06/13/19 at 12:00 Budesonide (Pulmicort) 0.5 mg RTBID NEB Last administered on 06/13/19at 20:12; Start 06/13/19 at 12:00 Albuterol Sulfate (Ventolin Neb Soln) 2.5 mg PRN Q4HRS PRN INH SHORTNESS OF BREATH; Start 06/13/19 at 11:45 Metronidazole (Flagyl) 2,000 mg 1X ONCE PO ; Start 06/14/19 at 07:15; Stop 06/14/19 at 07:16; Status DC Active Scripts Active Prednisone 20 Mg Tablet 1 Tab PO BID Reported Losartan Potassium 100 Mg Tablet 100 Mg PO DAILY Paroxetine Hcl 20 Mg Tablet 20 Mg PO DAILY Carvedilol 25 Mg Tablet 25 Mg PO BIDWMEALS Atorvastatin Calcium 80 Mg Tablet 80 Mg PO HS Montelukast Sodium 10 Mg Tablet 10 Mg PO HS Furosemide 20 Mg Tablet 20 Mg PO BID Dulera 200 Mcg/5 Mcg Inhaler (Mometasone/Formoterol) 13 Gm Hfa.aer.ad 1 Puff INH BID Spiriva (Tiotropium Ulysses) 18 Mcg Cap.w.dev 1 Puff INH DAILY Nitrostat (Nitroglycerin) 0.4 Mg Tab.subl 0.4 Mg SL PRN Q5MIN PRN Potassium Chloride (Potassium Chloride) 20 Meq Tablet.er 20 Meq PO DAILY Baclofen 10 Mg Tablet 10 Mg PO TID Amitriptyline Hcl 25 Mg Tablet 25 Mg PO HS Proair Hfa Inhaler (Albuterol Sulfate) 8.5 Gm Hfa.aer.ad 2 Puff INH PRN Q4HRS PRN Naproxen 500 Mg Tablet 500 Mg PO PRN Q12HR PRN Trazodone Hcl 50 Mg Tablet 25 Mg PO PRN QHS PRN Vitals/I & O Vital Sign - Last 24 Hours 06/13/19 06/13/19 06/13/19 06/13/19 08:00 08:04 11:00 11:12 Temp 98.4 98.4 Pulse 81 Resp 17 B/P (MAP) 187/78 (114) Pulse Ox 96 100 96 O2 Delivery Nasal Cannula Nasal Cannula Nasal Cannula Nasal Cannula O2 Flow Rate 4.0 3.0 4.0 3.0 06/13/19 06/13/19 06/13/19 06/13/19 11:33 11:34 15:00 15:23 Temp 98.6 98.6 Pulse 81 81 83 Resp 24 B/P (MAP) 187/78 187/78 161/78 (105) Pulse Ox 94 96 O2 Delivery Nasal Cannula Nasal Cannula O2 Flow Rate 4.0 3.0 06/13/19 06/13/19 06/13/19 06/13/19 17:51 19:00 19:52 20:14 Temp 99.0 99.0 Pulse 83 79 Resp 21 B/P (MAP) 161/78 120/84 (96) Pulse Ox 96 96 O2 Delivery Nasal Cannula Nasal Cannula Nasal Cannula O2 Flow Rate 2.0 2.0 3.0 06/13/19 06/13/19 06/14/19 20:14 23:13 03:00 Temp 98.8 99.5 98.8 99.5 Pulse 71 Resp 24 B/P (MAP) 136/68 (90) 132/66 (88) Pulse Ox 96 93 93 O2 Delivery Nasal Cannula Nasal Cannula Nasal Cannula O2 Flow Rate 3.0 2.0 2.0 Intake and Output 06/13/19 06/13/19 06/14/19 15:00 23:00 07:00 Intake Total 600 ml 720 ml 240 ml Output Total 700 ml 750 ml 0 ml Balance -100 ml -30 ml 240 ml MARINA MEDINA MD Jun 14, 2019 07:52
[2019-06-14] MEDS ORDERED: DEXTROSE 50% 25 GM / 50ML DISP.SYRIN. IV PRN (08:00)
[2019-06-14] MEDS ORDERED: MAGNESIUM SULFATE 1GM 100 ML IV ONE (08:00)
[2019-06-14] MEDS: INSULIN LISPRO 300 UNITS/3 ML VIAL. SQ SCH ×3 (08:00→17:00)
[2019-06-14] MEDS ORDERED: IV DEXTROSE 5% 250 ML BAG. IV PRN (08:00)
[2019-06-14] MEDS: IPRATRPIUM/ALBUTEROL 0.5/2.5MG 3 ML NEBU. NEB SCH ×4 (08:12→20:13)
[2019-06-14] MEDS: BUDESONIDE 0.5 MG/2 ML NEBU. NEB SCH ×2 (08:12→20:13)
[2019-06-14 08:30] VITALS: BP 154/80
[2019-06-14] MEDS: methylPREDNISolone SOD SUCC PF 40 MG/ML VIAL. IV SCH ×3 (08:59→21:23)
[2019-06-14] MEDS: LOSARTAN POTASSIUM 50 MG TABLET. PO SCH (08:59)
[2019-06-14] MEDS: BUMETANIDE 1 MG/4 ML VIAL. IV SCH ×2 (09:00→13:06)
[2019-06-14] MEDS: POTASSIUM CHLORIDE 20 MEQ TABLET.ER. PO SCH (09:00)
[2019-06-14] MEDS ORDERED: NON FORMULARY ITEM (Tiotropium Bromide (Spiriva) 1 PUFF) INH SCH (09:00)
[2019-06-14] MEDS: CARVEDILOL 12.5 MG TABLET. PO SCH ×2 (09:01→18:14)
[2019-06-14] MEDS: CYCLOBENZAPRINE 10 MG TABLET. PO SCH ×3 (09:02→21:16)
[2019-06-14] MEDS: PARoxetine 20 MG TABLET PO SCH (09:03)
[2019-06-14 09:21] LABS: PROTHROMBIN TIME PATIENT 12.8 SEC (11.7-14.0)
[2019-06-14 09:32] LABS: % ATYL 1 % (0-0); % BANDS 6 % (0-9); % LYMPHS 18 % (24-48); % MONOS 13 % (0-10); % SEGS 62 % (35-66); PLT ESTIMATE ADEQUATE (ADEQUATE)
[2019-06-14 12:00] VITALS: BP 120/65
[2019-06-14] MEDS: NAPROXEN 500 MG TABLET PO PRN (13:07)
--- NOTE | 2019-06-14 15:17 | NUR ---
7A 2/9 Mid back discomfort in bed. Am meds w some relief. Assist to cardiac chair after bkfst... more comfortable for back aches and breathing. Less exertional dyspnea observed after diuretics. Remains tachypneic (28-32/MIN) Drinking fluids w/o compromise but urine remains "concentrated" in appearance.Denies UTI symptomatology. Flagyl started /teaching provided. Tires easily. Cont w POC
[2019-06-14] MEDS ORDERED: WARFARIN 5 MG TABLET. PO SCH (16:00)
[2019-06-14 17:00] VITALS: BP 115/65
[2019-06-14 20:30] VITALS: BP 102/59
[2019-06-14] MEDS: MONTELUKAST SODIUM 10 MG TABLET. PO SCH (21:15)
[2019-06-14] MEDS: AMITRIPTYLINE HCL 25 MG TABLET. PO SCH (21:16)
[2019-06-14] MEDS: ATORVASTATIN CALCIUM 40 MG TABLET. PO SCH (21:16)
[2019-06-14 23:59] VITALS: BP 117/67
[2019-06-15 04:45] VITALS: BP 124/65
--- NOTE | 2019-06-15 06:17 | EKG ---
[facility] [address] [place] [address] Test Date: 2019-06-12 Test Time: 23:58:36 Pat Name: PASCALE MACDONALD Department: Room: Gender: F Building Equipment Operator: : [id number] Requested By: RODNEY MCDANIEL Order Number: [id number] Reading MD: Measurements Intervals [place] Rate: 98 P: 59 MT: 106 QRS: 87 QRSD: 158 T: -79 QT: 386 QTc: 494 Interpretive Statements SINUS RHYTHM LEFT ATRIAL ABNORMALITY NON SPECIFIC INTRAVENTRICULAR BLOCK QRS(T) CONTOUR ABNORMALITY CANNOT RULE OUT LATERAL MYOCARDIAL DAMAGE ABNORMAL ECG No previous ECG available for comparison
[2019-06-15] MEDS: methylPREDNISolone SOD SUCC PF 40 MG/ML VIAL. IV SCH ×3 (06:18→21:30)
[2019-06-15 07:14] LABS: BASO % 0 % (0-3); EOS % 0 % (0-3); HEMATOCRIT 48.9 % (36.0-47.0); HEMOGLOBIN 15.9 g/dL (12.0-15.5); LYMPH # 1.1 x10^3/uL (1.0-4.8); LYMPH % 14 % (24-48); MEAN CORPUSCULAR HEMOGLOBIN 27 pg (25-35); MEAN CORPUSCULAR HGB CONC 32 g/dL (31-37); MEAN CORPUSCULAR VOLUME 84 fL (79-100); MONO # 0.4 x10^3/uL (0.0-1.1); MONO % 5 % (0-9); NEUT % 80 % (31-73); PLATELET COUNT 214 x10^3/uL (140-400); RED BLOOD COUNT 5.85 x10^6/uL (3.50-5.40); RED CELL DISTRIBUTION WIDTH 14.8 % (11.5-14.5); WHITE BLOOD COUNT 7.5 x10^3/uL (4.0-11.0)
[2019-06-15 07:25] LABS: PROTHROMBIN TIME PATIENT 12.6 SEC (11.7-14.0)
[2019-06-15 07:32] LABS: CALCIUM 9.1 mg/dL (8.5-10.1); CREATININE 1.1 mg/dL (0.6-1.0); GFR 63.9; POTASSIUM 4.1 mmol/L (3.5-5.1)
[2019-06-15 08:00] VITALS: BP 160/78
[2019-06-15] MEDS: INSULIN LISPRO 300 UNITS/3 ML VIAL. SQ SCH ×3 (08:00→17:00)
[2019-06-15] MEDS: BUDESONIDE 0.5 MG/2 ML NEBU. NEB SCH ×2 (08:00→19:44)
[2019-06-15] MEDS: IPRATRPIUM/ALBUTEROL 0.5/2.5MG 3 ML NEBU. NEB SCH ×4 (08:17→19:44)
[2019-06-15] MEDS: CARVEDILOL 12.5 MG TABLET. PO SCH ×2 (08:52→19:25)
[2019-06-15] MEDS: CYCLOBENZAPRINE 10 MG TABLET. PO SCH ×3 (08:52→21:25)
[2019-06-15] MEDS: LOSARTAN POTASSIUM 50 MG TABLET. PO SCH (08:52)
[2019-06-15] MEDS: PARoxetine 20 MG TABLET PO SCH (08:53)
[2019-06-15] MEDS: POTASSIUM CHLORIDE 20 MEQ TABLET.ER. PO SCH (08:53)
[2019-06-15] MEDS: BUMETANIDE 1 MG/4 ML VIAL. IV SCH ×2 (08:56→15:31)
[2019-06-15] MEDS: NAPROXEN 500 MG TABLET PO PRN (08:57)
--- NOTE | 2019-06-15 09:44 | CARD ---
MR#: [id number] Date of Study: 06/15/2019 Ordering Physician: MARINA MEDINA, Referring Physician: MARINA MEDINA, Tech: Otilia Parker [facility] APPROVED REPORT EXAM: Two-dimensional and M-mode echocardiogram with Doppler and color Doppler. Other Information Quality : AverageHR: 60bpm Rhythm : NSR INDICATION Congenital Heart Disease 2D DIMENSIONS RVDd2.9 (2.9-3.5cm)Left Atrium(2D)4.1 (1.6-4.0cm) IVSd1.4 (0.7-1.1cm)Aortic Root(2D)2.7 (2.0-3.7cm) LVDd4.6 (3.9-5.9cm)LVOT Diameter2.0 (1.8-2.4cm) PWd1.4 (0.7-1.1cm)LVDs3.4 (2.5-4.0cm) FS (%) 24.4 %SV46.2 ml LVEF(%)48.6 (>50%) M-Mode DIMENSIONS Left Atrium(MM)2.93 (2.5-4.0cm) Aortic Valve AoV Peak John.126.6cm/sAoV VTI19.3cm AO Peak GR.6.4mmHgLVOT VTI 15.83cm AO Mean GR.3mmHgAVA (VTI)2.70cm2 AI P 1/2 [id number] Mitral Valve MV E Jjiojllf56.3cm/sMV DECEL EMFQ483gm MV A Sopvvcbi95.4cm/sE/A Ratio0.9 MV A [id number] TDI Lateral E' P. V4.12cm/sMedial E' P. V5.47cm/s E/Lateral E'20.7E/Medial E'15.6 LEFT VENTRICLE The left ventricle is normal size. There is mild concentric left ventricular hypertrophy. The left ve ntricular systolic function is mildly impaired. The Ejection Fraction is 45-50%. There is global hypo kinesis of the left ventricle. Transmitral Doppler flow pattern is Grade I-abnormal relaxation patter n. RIGHT VENTRICLE The right ventricle is normal size. There is normal right ventricular wall thickness. The right ventr icular systolic function is normal. Pacer lead noted in right heart. ATRIA The left atrium size is normal. The right atrium size is normal. The interatrial septum is intact wit h no evidence for an atrial septal defect or patent foramen ovale as noted on 2-D or Doppler imaging. AORTIC VALVE The aortic valve is not well visualized. The aortic valve is probably trileaflet. Doppler and Color F low revealed mild aortic regurgitation. There is no significant aortic valvular stenosis. MITRAL VALVE The mitral valve is thickened but opens well. There is no evidence of mitral valve prolapse. There is no mitral valve stenosis. Doppler and Color Flow revealed no mitral valve regurgitation noted. TRICUSPID VALVE The tricuspid valve is normal in structure and function. Doppler and Color Flow revealed no tricuspid valve regurgitation noted. There is no tricuspid valve prolapse or vegetation. There is no tricuspid valve stenosis. PULMONIC VALVE The pulmonic valve is not well visualized. GREAT VESSELS The aortic root is normal in size. The ascending aorta is normal in size. The IVC is normal in size a nd collapses >50% with inspiration. PERICARDIAL EFFUSION There is no evidence of significant pericardial effusion. Critical Notification Critical Value: No <Conclusion> The left ventricular systolic function is mildly impaired. The Ejection Fraction is 45-50%. Transmitral Doppler flow pattern is Grade I-abnormal relaxation pattern. Pacer lead noted in RA/RV. Doppler and Color Flow revealed mild aortic regurgitation. There is no evidence of significant pericardial effusion. Signed by : Avelino Augustin, Electronically Approved : 06/15/2019 09:44:09
--- NOTE | 2019-06-15 10:34 | NUR ---
SS following for discharge planning. SS reviewed pt chart. Pt is from home with spouse and is currently requiring oxygen. SS will continue to follow for discharge planning.
[2019-06-15 12:00] VITALS: BP 132/70
--- NOTE | 2019-06-15 15:37 | PDOC ---
[employer] PROGRESS NOTE Chief Complaint Chief Complaint Acute exacerbation of congestive heart failure suspect systolic dysfunction VQ scan with high probability of pulmonary embolism History of tobacco abuse and subsequent COPD Essential hypertension Mild elevation of troponin most likely demand ischemia and most likely secondary to pulmonary emboli History of Present Illness History of Present Illness Patient seen and examined in the ICU Discussed with RN Chart reviewed Vitals/I&O Vitals/I&O: Vital Signs Date Time Temp Pulse Resp B/P (MAP) Pulse Ox O2 Delivery O2 Flow Rate FiO2 06/15/19 11:43 Nasal Cannula 3.0 06/15/19 08:52 66 141/81 06/15/19 04:45 97.4 18 99 97.4 I & O 06/14/19 06/14/19 06/15/19 15:00 23:00 07:00 Intake Total 880 ml 360 ml 300 ml Output Total 900 ml 120 ml 500 ml Balance -20 ml 240 ml -200 ml Physical Exam Physical Exam: Gen.: well-developed well-nourished in no apparent distress Head: Normal shape atraumatic Eyes: Pupils equal reactive to light and accommodation, normal conjunctivae and lids Ears: Normal shape Nose: Normal shape no trauma Mouth: No exudates of the back of throat no thrush no lesions Neck: Supple, no JVD no carotid bruit or lymphadenopathy no thyromegaly Chest: Lungs clear to auscultation with good inspiratory effort no crackles rales or rhonchi Cardiovascular: S1-S2 regular rhythm no murmurs gallops or rubs Abdomen: Bowel sounds present soft nontender no hepatosplenomegaly appreciated sign Extremities: No clubbing no cyanosis no edema peripheral pulses palpated bilaterally Neurological: Alert awake oriented in person time place and situation, cranial nerves II through XII intact, no motor or sensory deficits appreciated Psych: Appropriate mood, cooperative Labs Labs: Laboratory Tests Test 06/14/19 17:58 06/14/19 21:32 06/15/19 06:55 06/15/19 08:26 Glucose (Fingerstick) 119 mg/dL (70-99) 186 mg/dL (70-99) 119 mg/dL (70-99) White Blood Count 7.5 x10^3/uL (4.0-11.0) Red Blood Count 5.85 x10^6/uL (3.50-5.40) Hemoglobin 15.9 g/dL (12.0-15.5) Hematocrit 48.9 % (36.0-47.0) Mean Corpuscular Volume 84 fL (79-100) Mean Corpuscular Hemoglobin 27 pg (25-35) Mean Corpuscular Hemoglobin Concent 32 g/dL (31-37) Red Cell Distribution Width 14.8 % (11.5-14.5) Platelet Count 214 x10^3/uL (140-400) Neutrophils (%) (Auto) 80 % (31-73) Lymphocytes (%) (Auto) 14 % (24-48) Monocytes (%) (Auto) 5 % (0-9) Eosinophils (%) (Auto) 0 % (0-3) Basophils (%) (Auto) 0 % (0-3) Neutrophils # (Auto) 6.0 x10^3/uL (1.8-7.7) Lymphocytes # (Auto) 1.1 x10^3/uL (1.0-4.8) Monocytes # (Auto) 0.4 x10^3/uL (0.0-1.1) Eosinophils # (Auto) 0.0 x10^3/uL (0.0-0.7) Basophils # (Auto) 0.0 x10^3/uL (0.0-0.2) Prothrombin Time 12.6 SEC (11.7-14.0) Prothromb Time International Ratio 1.0 (0.8-1.1) Sodium Level 141 mmol/L (136-145) Potassium Level 4.1 mmol/L (3.5-5.1) Chloride Level 104 mmol/L (98-107) Carbon Dioxide Level 30 mmol/L (21-32) Anion Gap 7 (6-14) Blood Urea Nitrogen 26 mg/dL (7-20) Creatinine 1.1 mg/dL (0.6-1.0) Estimated GFR (Cockcroft-Gault) 63.9 Glucose Level 136 mg/dL (70-99) Calcium Level 9.1 mg/dL (8.5-10.1) Review of Systems Review of Systems: Reports mild SOA denies chest pain Assessment and Plan Assessmemt and Plan Problems Medical Problems: (1) Acute CHF Status: Acute (2) Elevated d-dimer Status: Acute (3) Hypertension Status: Acute (4) PNA (pneumonia) Status: Acute Acute exacerbation of congestive heart failure suspect systolic dysfunction VQ scan with high probability of pulmonary embolism History of tobacco abuse and subsequent COPD Essential hypertension Mild elevation of troponin most likely demand ischemia and most likely secondary to pulmonary emboli Unable to perform CTA due to iodine allergy Plan: -ICU Monitoring -continue steroids -Breathing treatments -Oxygen -Diuretic therapy -Warfarin per pharmacy Comment Review of Relevant I have reviewed the following items mary (where applicable) has been applied. Medications: Current Medications Medications (Trade) Dose Ordered Sig/Kary Route PRN Reason Start Time Stop Time Status Last Admin Dose Admin Warfarin Sodium (Coumadin) 5 mg DAILY16 PO 06/14/19 16:00 06/14/19 18:15 GAMALIEL WRIGHT III DO Jun 15, 2019 15:37
--- NOTE | 2019-06-15 15:41 | NUR ---
Pharmacy Warfarin Dosing Note S:Pharmacy consulted to assist with anticoagulation therapy started 06/14/19 with target INR: 2 -3 O:PASCALE MACDONALD is a 48 year old F with DVT/PE LABS: Last INR: 1 Last HGB: 10.4 Last HCT: 47.1 Last PLT: 172 Last dose of 5 mg given on 06/14/19 at 1700 Previous Regimen: Vitamin K given: Drug Interaction Changes: Ongoing Drug Interactions: A:INR of 1 is below desired range. Target range for this patient is: 2 -3 P: Warfarin dose: 7.5 mg Today at 1600 Bridge Therapy: Enoxaparin 1 mg/kg q12h Next INR due IN AM Pharmacy anticoagulation service will continue to follow. TAMMY SUMMERS [facility], 06/15/19 0670
[2019-06-15] MEDS ORDERED: WARFARIN 7.5 MG TABLET. PO ONE (16:00)
[2019-06-15 17:01] VITALS: BP 120/70
[2019-06-15 19:30] VITALS: BP 141/70
--- NOTE | 2019-06-15 19:34 | NUR ---
INformed on increased dose for Coumadin and what dictates dosage. anxious to be informed on status /Rx. Better day w less coughing. Remains productive /thick.Expectorates into tissues. Agrees that she is feeling better today in comparison to past 48'. Still c/o generalized fatigue. Independent BRP. DOMINGUEZ relief from earlier analgesic. Reported dizziness....familial thing... VS checked and stable. Resting bck on bed at this time
--- NOTE | 2019-06-15 19:45 | NUR ---
Patient states she feels much better today; continues to have productive cough with thick brown sputum, but no longer feeling short of breath. Patient reports walking independently without her cane in the room without difficulties, she denies unsteadiness or dizziness/lightheadedness. Encourage patient if when getting up through the night she feels unsteady, she will need to call for help to assist to BSC. Patient verbalized understanding and agreement.
[2019-06-15] MEDS: MONTELUKAST SODIUM 10 MG TABLET. PO SCH (21:25)
[2019-06-15] MEDS: AMITRIPTYLINE HCL 25 MG TABLET. PO SCH (21:25)
[2019-06-15] MEDS: ATORVASTATIN CALCIUM 40 MG TABLET. PO SCH (21:25)
[2019-06-15 23:55] VITALS: BP 130/75
[2019-06-16 04:00] VITALS: BP 135/63
[2019-06-16 04:39] LABS: PROTHROMBIN TIME PATIENT 13.4 SEC (11.7-14.0)
[2019-06-16] MEDS: methylPREDNISolone SOD SUCC PF 40 MG/ML VIAL. IV SCH ×3 (06:18→20:51)
[2019-06-16 08:00] VITALS: BP 150/83
[2019-06-16] MEDS: INSULIN LISPRO 300 UNITS/3 ML VIAL. SQ SCH ×3 (08:00→17:00)
[2019-06-16] MEDS: IPRATRPIUM/ALBUTEROL 0.5/2.5MG 3 ML NEBU. NEB SCH ×4 (08:02→20:21)
[2019-06-16] MEDS: BUDESONIDE 0.5 MG/2 ML NEBU. NEB SCH ×2 (08:02→20:21)
[2019-06-16] MEDS: CARVEDILOL 12.5 MG TABLET. PO SCH ×2 (08:37→17:28)
[2019-06-16] MEDS: BUMETANIDE 1 MG/4 ML VIAL. IV SCH ×2 (08:38→14:54)
[2019-06-16] MEDS: POTASSIUM CHLORIDE 20 MEQ TABLET.ER. PO SCH (08:38)
[2019-06-16] MEDS: PARoxetine 20 MG TABLET PO SCH (08:38)
[2019-06-16] MEDS: LOSARTAN POTASSIUM 50 MG TABLET. PO SCH (08:38)
[2019-06-16] MEDS: CYCLOBENZAPRINE 10 MG TABLET. PO SCH ×3 (08:41→20:52)
--- NOTE | 2019-06-16 11:42 | PDOC ---
[facility] PROGRESS NOTE Chief Complaint Chief Complaint Acute exacerbation of congestive heart failure suspect systolic dysfunction VQ scan with high probability of pulmonary embolism History of tobacco abuse and subsequent COPD Essential hypertension Mild elevation of troponin most likely demand ischemia and most likely secondary to pulmonary emboli History of Present Illness History of Present Illness Patient seen and examined in the ICU Progress was discussed with RN Current medications and chart reviewed Vitals/I&O Vitals/I&O: Vital Signs Date Time Temp Pulse Resp B/P (MAP) Pulse Ox O2 Delivery O2 Flow Rate FiO2 06/16/19 11:08 98 Nasal Cannula 2.0 06/16/19 08:38 150/83 06/16/19 08:37 76 06/16/19 08:00 98.0 14 98.0 I & O 06/15/19 06/15/19 06/16/19 15:00 23:00 07:00 Intake Total 590 ml 600 ml 200 ml Output Total 700 ml 500 ml 0 ml Balance -110 ml 100 ml 200 ml Physical Exam Physical Exam: Gen.: well-developed well-nourished in no apparent distress Head: Normal shape atraumatic Eyes: Pupils equal reactive to light and accommodation, normal conjunctivae and lids Ears: Normal shape Nose: Normal shape no trauma Mouth: No exudates of the back of throat no thrush no lesions Neck: Supple, no JVD no carotid bruit or lymphadenopathy no thyromegaly Chest: Lungs clear to auscultation with good inspiratory effort no crackles rales or rhonchi Cardiovascular: S1-S2 regular rhythm no murmurs gallops or rubs Abdomen: Bowel sounds present soft nontender no hepatosplenomegaly appreciated sign Extremities: No clubbing no cyanosis no edema peripheral pulses palpated bilaterally Neurological: Alert awake oriented in person time place and situation, cranial nerves II through XII intact, no motor or sensory deficits appreciated Psych: Appropriate mood, cooperative General: Alert Heart: Regular rate Labs Labs: Laboratory Tests Test 06/15/19 21:37 06/16/19 04:15 06/16/19 08:33 Glucose (Fingerstick) 159 mg/dL (70-99) 143 mg/dL (70-99) Prothrombin Time 13.4 SEC (11.7-14.0) Prothromb Time International Ratio 1.1 (0.8-1.1) Review of Systems Review of Systems: Respiratory: denies hemoptysis, denies stridor GI: denies any N/V/D Heart: denies any palpitations or chest pain Assessment and Plan Assessmemt and Plan Assessment: Acute exacerbation of congestive heart failure suspect systolic dysfunction VQ scan with high probability of pulmonary embolism History of tobacco abuse and subsequent COPD Essential hypertension Mild elevation of troponin most likely demand ischemia and most likely secondary to pulmonary emboli Plan: Monitor INR until at therapeutic level Continue breathing therapy Consider ABX therapy for positive U/A Comment Review of Relevant I have reviewed the following items mary (where applicable) has been applied. Medications: Current Medications Medications (Trade) Dose Ordered Sig/Kary Route PRN Reason Start Time Stop Time Status Last Admin Dose Admin Warfarin Sodium (Coumadin Per Pharmacy) 1 each PRN DAILY PRN MC SEE COMMENTS 06/15/19 14:45 06/15/19 15:37 Warfarin Sodium (Coumadin) 7.5 mg 1X WARF ONCE PO 06/15/19 16:00 06/15/19 16:01 DC 06/15/19 19:25 GAMALIEL WRIGHT III DO Jun 16, 2019 11:42
[2019-06-16 12:00] VITALS: BP 159/80
--- NOTE | 2019-06-16 14:03 | NUR ---
Pharmacy Warfarin Dosing Note S:Pharmacy consulted to assist with anticoagulation therapy started 06/14/19 with target INR: 2 -3 O:PASCALE MACDONALD is a 48 year old F with DVT/PE LABS: Last INR: 1.1 Last HGB: 13.4 Last HCT: 47.1 Last PLT: 172 Last dose of 7.5 mg given on 06/14/19 at 1700 Previous Regimen: Vitamin K given: Drug Interaction Changes: Ongoing Drug Interactions: A:INR of 1.1 is below desired range. Target range for this patient is: 2 -3 P: Warfarin dose: 7.5 mg Today at 1600 Bridge Therapy: Enoxaparin 1 mg/kg q12h Next INR due IN AM Pharmacy anticoagulation service will continue to follow. TAMMY SUMMERS [facility], 06/16/19 [id number]
[2019-06-16] MEDS ORDERED: WARFARIN 7.5 MG TABLET. PO ONE (16:00)
[2019-06-16] MEDS ORDERED: metroNIDAZOLE 500 MG TABLET PO ONE (16:30)
[2019-06-16] MEDS ORDERED: AZITHROMYCIN 250 MG TABLET. PO ONE (16:30)
[2019-06-16] MEDS ORDERED: WARFARIN 5 MG TABLET. PO ONE (16:30)
[2019-06-16 17:00] VITALS: BP 169/95
[2019-06-16 20:00] VITALS: BP 153/70
[2019-06-16] MEDS: AMITRIPTYLINE HCL 25 MG TABLET. PO SCH (20:51)
[2019-06-16] MEDS: MONTELUKAST SODIUM 10 MG TABLET. PO SCH (20:51)
[2019-06-16] MEDS: ATORVASTATIN CALCIUM 40 MG TABLET. PO SCH (20:51)
[2019-06-17] VITALS (7 sets, daily range): BP systolic 135–168; BP diastolic 74–87
[2019-06-17 05:54] LABS: PROTHROMBIN TIME PATIENT 15.8 SEC (11.7-14.0)
[2019-06-17] MEDS: methylPREDNISolone SOD SUCC PF 40 MG/ML VIAL. IV SCH ×3 (06:14→20:35)
[2019-06-17] MEDS: INSULIN LISPRO 300 UNITS/3 ML VIAL. SQ SCH ×3 (08:58→17:00)
[2019-06-17] MEDS: AZITHROMYCIN 250 MG TABLET. PO SCH (08:59)
[2019-06-17] MEDS: CARVEDILOL 12.5 MG TABLET. PO SCH ×2 (08:59→17:42)
[2019-06-17] MEDS: LOSARTAN POTASSIUM 50 MG TABLET. PO SCH (08:59)
[2019-06-17] MEDS: PARoxetine 20 MG TABLET PO SCH (08:59)
[2019-06-17] MEDS: POTASSIUM CHLORIDE 20 MEQ TABLET.ER. PO SCH (09:00)
[2019-06-17] MEDS: BUMETANIDE 1 MG/4 ML VIAL. IV SCH ×2 (09:00→13:45)
[2019-06-17] MEDS: CYCLOBENZAPRINE 10 MG TABLET. PO SCH ×3 (09:00→20:35)
[2019-06-17] MEDS: IPRATRPIUM/ALBUTEROL 0.5/2.5MG 3 ML NEBU. NEB SCH ×4 (09:36→20:09)
[2019-06-17] MEDS: BUDESONIDE 0.5 MG/2 ML NEBU. NEB SCH ×2 (09:36→20:09)
--- NOTE | 2019-06-17 12:18 | NUR ---
Pharmacy Warfarin Dosing Note S: Pharmacy consulted to assist with anticoagulation therapy started 06/14/19 O: PASCALE MACDONALD is a 48 year old F with DVT/PE LABS: Last INR: 1.3 Last HGB: 15.9 Last HCT: 48.9 Last PLT: 214 Last dose of 5 mg given on 06/16/19 at 1724 Vitamin K given: N Ongoing Drug Interactions: azithromycin, paroxetine, naproxen A:INR of 1.3 is below desired range. Target range for this patient is: 2 -3 P: Warfarin dose: 6 mg Today at 1600 Bridge Therapy: Enoxaparin 1 mg/kg q12h Next INR due tomorrow Pharmacy anticoagulation service will continue to follow. Marce De Oliveira RPH, 06/17/19 [id number]
--- NOTE | 2019-06-17 14:24 | PDOC ---
[facility] PROGRESS NOTE Chief Complaint Chief Complaint Acute exacerbation of congestive heart failure suspect systolic dysfunction VQ scan with high probability of pulmonary embolism History of tobacco abuse and subsequent COPD Essential hypertension Mild elevation of troponin most likely demand ischemia and most likely secondary to pulmonary emboli History of Present Illness History of Present Illness Patient seen and examined in the ICU Progress was discussed with RN Current medications and chart reviewed Vitals/I&O Vitals/I&O: Vital Signs Date Time Temp Pulse Resp B/P (MAP) Pulse Ox O2 Delivery O2 Flow Rate FiO2 06/17/19 13:29 97 Room Air 06/17/19 12:00 98.2 75 16 135/75 (95) 98.2 06/16/19 20:18 1.0 I & O 06/16/19 06/16/19 06/17/19 15:00 23:00 07:00 Intake Total 300 ml 600 ml Output Total 850 ml 1000 ml 0 ml Balance -550 ml -400 ml 0 ml Physical Exam Physical Exam: Gen.: well-developed well-nourished in no apparent distress Head: Normal shape atraumatic Eyes: Pupils equal reactive to light and accommodation, normal conjunctivae and lids Ears: Normal shape Nose: Normal shape no trauma Mouth: No exudates of the back of throat no thrush no lesions Neck: Supple, no JVD no carotid bruit or lymphadenopathy no thyromegaly Chest: Lungs clear to auscultation with good inspiratory effort no crackles rales or rhonchi Cardiovascular: S1-S2 regular rhythm no murmurs gallops or rubs Abdomen: Bowel sounds present soft nontender no hepatosplenomegaly appreciated sign Extremities: No clubbing no cyanosis no edema peripheral pulses palpated bilaterally Neurological: Alert awake oriented in person time place and situation, cranial nerves II through XII intact, no motor or sensory deficits appreciated Psych: Appropriate mood, cooperative General: Alert, No acute distress Heart: Regular rate, Normal S1 Lungs: Wheezing Abdomen: Normal bowel sounds Extremities: No clubbing Skin: No rashes Labs Labs: Laboratory Tests Test 06/16/19 20:55 06/17/19 05:00 06/17/19 08:17 06/17/19 12:27 Glucose (Fingerstick) 186 mg/dL (70-99) 119 mg/dL (70-99) 136 mg/dL (70-99) Prothrombin Time 15.8 SEC (11.7-14.0) Prothromb Time International Ratio 1.3 (0.8-1.1) Review of Systems Review of Systems: GI: patient denies N/V/D Cardiac: patient denies palpitations, syncope or chest pain Assessment and Plan Assessmemt and Plan Assessment: Acute exacerbation of congestive heart failure suspect systolic dysfunction Possible gram (-) or gram (+) PNA Vasomotor nephropathy SCOTT VQ scan with high probability of pulmonary embolism History of tobacco abuse and subsequent COPD Essential hypertension Mild elevation of troponin most likely demand ischemia and most likely secondary to pulmonary emboli Plan: Trend INR till therapeutic level Continue ICU monitoring Continue to trend labs Recommend follow up with outpatient provider Comment Review of Relevant I have reviewed the following items mary (where applicable) has been applied. Medications: Current Medications Medications (Trade) Dose Ordered Sig/Kary Route PRN Reason Start Time Stop Time Status Last Admin Dose Admin Azithromycin (Zithromax) 500 mg 1X ONCE PO 06/16/19 16:30 06/16/19 16:31 DC 06/16/19 17:45 Azithromycin (Zithromax) 250 mg DAILY PO 06/17/19 09:00 06/20/19 09:01 06/17/19 08:59 Warfarin Sodium (Coumadin) 5 mg 1X WARF ONCE PO 06/16/19 16:30 06/16/19 16:31 DC 06/16/19 17:24 GAMALIEL WRIGHT III DO Jun 17, 2019 14:24
[2019-06-17] MEDS ORDERED: WARFARIN 3 MG TABLET. PO ONE (16:00)
[2019-06-17] MEDS: LACTOBACILLUS RHAMNOSUS GG 1 CAPSULE. PO SCH (20:34)
[2019-06-17] MEDS: AMITRIPTYLINE HCL 25 MG TABLET. PO SCH (20:35)
[2019-06-17] MEDS: MONTELUKAST SODIUM 10 MG TABLET. PO SCH (20:35)
[2019-06-17] MEDS: ATORVASTATIN CALCIUM 40 MG TABLET. PO SCH (20:35)
[2019-06-18 04:00] VITALS: BP 160/84
[2019-06-18] MEDS: methylPREDNISolone SOD SUCC PF 40 MG/ML VIAL. IV SCH ×2 (05:34→13:05)
[2019-06-18 05:45] LABS: PROTHROMBIN TIME PATIENT 21.8 SEC (11.7-14.0)
[2019-06-18] MEDS: BUDESONIDE 0.5 MG/2 ML NEBU. NEB SCH (07:51)
[2019-06-18] MEDS: IPRATRPIUM/ALBUTEROL 0.5/2.5MG 3 ML NEBU. NEB SCH ×2 (07:51→11:53)
[2019-06-18 07:56] VITALS: BP 144/74
[2019-06-18] MEDS: CYCLOBENZAPRINE 10 MG TABLET. PO SCH (09:00)
[2019-06-18] MEDS: INSULIN LISPRO 300 UNITS/3 ML VIAL. SQ SCH ×2 (09:07→12:00)
[2019-06-18] MEDS: CARVEDILOL 12.5 MG TABLET. PO SCH (09:09)
[2019-06-18] MEDS: LOSARTAN POTASSIUM 50 MG TABLET. PO SCH (09:09)
[2019-06-18] MEDS: PARoxetine 20 MG TABLET PO SCH (09:10)
[2019-06-18] MEDS: BUMETANIDE 1 MG/4 ML VIAL. IV SCH (09:10)
[2019-06-18] MEDS: POTASSIUM CHLORIDE 20 MEQ TABLET.ER. PO SCH (09:10)
[2019-06-18] MEDS: LACTOBACILLUS RHAMNOSUS GG 1 CAPSULE. PO SCH (09:10)
[2019-06-18] MEDS: AZITHROMYCIN 250 MG TABLET. PO SCH (09:10)
--- NOTE | 2019-06-18 10:20 | NUR ---
Pharmacy Warfarin Dosing Note S: Pharmacy consulted to assist with anticoagulation therapy started 06/14/19 O: PASCALE MACDONALD is a 48 year old F with DVT/PE LABS: Last INR: 1.9 Last HGB: 15.9 Last HCT: 48.9 Last PLT: 214 Last dose of 6 mg given on 06/17/19 at 1548 Vitamin K given: N Ongoing Drug Interactions: azithromycin, paroxetine, naproxen A:INR of 1.9 is below desired range. Target range for this patient is: 2 -3 P: Warfarin dose: 3 mg Today at 1600 Bridge Therapy: Enoxaparin 1 mg/kg q12h Next INR due tomorrow Pharmacy anticoagulation service will continue to follow. Marce De Oliveira RPH, 06/18/19 1023
--- NOTE | 2019-06-18 10:39 | NUR ---
SS following up with discharge planning. Pt is currently on room air. Per pt's RN, INR 1.9 and now therapeutic. SS will continue to follow for discharge planning.
--- NOTE | 2019-06-18 11:47 | PDOC ---
[facility] PROGRESS NOTE Chief Complaint Chief Complaint Acute exacerbation of congestive heart failure suspect systolic dysfunction VQ scan with high probability of pulmonary embolism History of tobacco abuse and subsequent COPD Essential hypertension Mild elevation of troponin most likely demand ischemia and most likely secondary to pulmonary emboli History of Present Illness History of Present Illness Patient seen and examined in the ICU Progress was discussed with RN Current medications and chart reviewed Patient is wanting to return to work Vitals/I&O Vitals/I&O: Vital Signs Date Time Temp Pulse Resp B/P (MAP) Pulse Ox O2 Delivery O2 Flow Rate FiO2 06/18/19 09:09 63 144/74 06/18/19 07:56 Room Air 06/18/19 07:56 98.4 12 97 98.4 I & O 06/17/19 06/17/19 06/18/19 15:00 23:00 07:00 Intake Total 840 ml 360 ml Output Total 2350 ml 400 ml 300 ml Balance -1510 ml -40 ml -300 ml Physical Exam Physical Exam: Gen.: well-developed well-nourished in no apparent distress Head: Normal shape atraumatic Eyes: Pupils equal reactive to light and accommodation, normal conjunctivae and lids Ears: Normal shape Nose: Normal shape no trauma Mouth: No exudates of the back of throat no thrush no lesions Neck: Supple, no JVD no carotid bruit or lymphadenopathy no thyromegaly Chest: Lungs clear to auscultation with good inspiratory effort no crackles rales or rhonchi Cardiovascular: S1-S2 regular rhythm no murmurs gallops or rubs Abdomen: Bowel sounds present soft nontender no hepatosplenomegaly appreciated sign Extremities: No clubbing no cyanosis no edema peripheral pulses palpated bilaterally Neurological: Alert awake oriented in person time place and situation, cranial nerves II through XII intact, no motor or sensory deficits appreciated Psych: Appropriate mood, cooperative General: Alert, No acute distress Heart: Regular rate, Normal S1 Lungs: Wheezing Abdomen: Normal bowel sounds Extremities: No clubbing Skin: No rashes Labs Labs: Laboratory Tests Test 06/17/19 12:27 06/17/19 20:34 06/18/19 04:55 06/18/19 08:28 Glucose (Fingerstick) 136 mg/dL (70-99) 204 mg/dL (70-99) 118 mg/dL (70-99) Prothrombin Time 21.8 SEC (11.7-14.0) Prothromb Time International Ratio 1.9 (0.8-1.1) Review of Systems Review of Systems: Lungs: patient denies SOB, denies wheezing Heart: patient denies any chest pain or palpitations Assessment and Plan Assessmemt and Plan Assessment: Acute exacerbation of congestive heart failure suspect systolic dysfunction VQ scan with high probability of pulmonary embolism History of tobacco abuse and subsequent COPD Essential hypertension Possible PNA Mild elevation of troponin most likely demand ischemia and most likely secondary to pulmonary emboli Plan: Patient's INR stable for D/C PO medications given including steroid taper Patient instructed to follow INR with outpatient provider Comment Review of Relevant I have reviewed the following items mary (where applicable) has been applied. Medications: Current Medications Medications (Trade) Dose Ordered Sig/Kary Route PRN Reason Start Time Stop Time Status Last Admin Dose Admin Lactobacillus Rhamnosus (Culturelle) 1 cap BID PO 06/17/19 21:00 06/18/19 09:10 Warfarin Sodium (Coumadin) 6 mg 1X WARF ONCE PO 06/17/19 16:00 06/17/19 16:01 DC 06/17/19 15:48 GAMALIEL WRIGHT III DO Jun 18, 2019 11:47
[2019-06-18 12:00] VITALS: BP 142/80
--- NOTE | 2019-06-18 13:25 | NUR ---
Discharge Note: [facility] Discharge instructions and discharge home medications reviewed with Patient and a copy given. All questions have been answered and understanding verbalized. The following instructions and handouts were given: Dc instructions; warfarin education provided to patient with instructions for daily INR lab draws. Discontinued lines and drains: dressing clean dry and intact. Patient discharged to home with self care via son.
[2019-06-18] MEDS ORDERED: WARFARIN 3 MG TABLET. PO ONE (16:00)
== END 2019-06-18 13:37 | disposition home or self-care (01) | DRG 175 ==
LOC: ER 23:22 → 1 WEST ICU 06-13 00:40
PROVIDERS: ADMIT Internal Medicine; ATTEND Internal Medicine
DX: I26.99 Other pulmonary embolism without acute cor pulmonale (principal); N17.0 Acute kidney failure with tubular necrosis; J18.9 Pneumonia, unspecified organism; I50.23 Acute on chronic systolic (congestive) heart failure; J44.0 Chronic obstructive pulmonary disease with (acute) lower respiratory infection; I24.8 Other forms of acute ischemic heart disease; F32.9 Major depressive disorder, single episode, unspecified; F41.9 Anxiety disorder, unspecified; M19.90 Unspecified osteoarthritis, unspecified site; I11.0 Hypertensive heart disease with heart failure; Z88.8 Allergy status to other drugs, medicaments and biological substances; Z72.0 Tobacco use; Z95.0 Presence of cardiac pacemaker; Z91.14 Patient's other noncompliance with medication regimen; Z91.041 Radiographic dye allergy status; Z90.710 Acquired absence of both cervix and uterus
CPT/HCPCS: 36415; 36600; 71045; 78582; 80048; 80053; 81001; 82805; 82962; 83880; 84484; 85007; 85025; 85379; 85610; 87804; 93005; 93306; 94640; 94667; 94668; 94760; 96365; 96372; 96374; 96375; A9540; A9558; J0360; J1650; J1815; J1940; J1956; J2920; J2930; J3475; J3490; J7620; J7626; Q0144; 99291-25; G0378

== ENCOUNTER 2019-10-19 00:12 | Inpatient (IN) | payer OTHER ==
[~2019-10-19] VITALS: Ht 162.6 cm; Wt 117.2 kg
[~2019-10-19 00:12] MED LIST changes: +ATOR80TA72 PO; +CARV25TA2 PO; +FURO20TA3 PO; +LOSA100T14 PO; +MOME13HF INH; +MONT10TA11 PO; +PARO20TA3 PO; +TIOT18CA INH
[2019-10-19] MEDS ORDERED: ONDANSETRON PF 4 MG/2 ML VIAL. IVP ONE (00:30)
[2019-10-19] MEDS: MORPHINE SULFATE 4 MG/ML VIAL. IV/SQ PRN ×2 (00:44→01:12)
[2019-10-19 00:48] LABS: BASO # 0.1 x10^3/uL (0.0-0.2); BASO % 1 % (0-3); EOS # 0.3 x10^3/uL (0.0-0.7); EOS % 3 % (0-3); HEMATOCRIT 43.1 % (36.0-47.0); HEMOGLOBIN 14.3 g/dL (12.0-15.5); LYMPH # 2.3 x10^3/uL (1.0-4.8); LYMPH % 24 % (24-48); MEAN CORPUSCULAR HEMOGLOBIN 28 pg (25-35); MEAN CORPUSCULAR HGB CONC 33 g/dL (31-37); MEAN CORPUSCULAR VOLUME 85 fL (79-100); MONO # 0.8 x10^3/uL (0.0-1.1); MONO % 9 % (0-9); NEUT % 63 % (31-73); PLATELET COUNT 199 x10^3/uL (140-400); RED BLOOD COUNT 5.09 x10^6/uL (3.50-5.40); RED CELL DISTRIBUTION WIDTH 14.1 % (11.5-14.5); WHITE BLOOD COUNT 9.5 x10^3/uL (4.0-11.0)
[2019-10-19 00:54] LABS: CALCIUM 8.4 mg/dL (8.5-10.1); CREATININE 1.1 mg/dL (0.6-1.0); GFR 63.6; POTASSIUM 3.9 mmol/L (3.5-5.1)
[2019-10-19 01:00] LABS: ALBUMIN 3.3 g/dL (3.4-5.0); MAGNESIUM 1.3 mg/dL (1.8-2.4); TOTAL BILIRUBIN 0.2 mg/dL (0.2-1.0); TOTAL PROTEIN 6.7 g/dL (6.4-8.2)
[2019-10-19 01:52] LABS: BILIRUBIN,URINE NEGATIVE (NEG); CLARITY,URINE CLEAR; COLOR,URINE YELLOW; NITRITE,URINE NEGATIVE (NEG); PH,URINE 5.5 (<5.0-8.0); PROTEIN,URINE NEGATIVE (NEG-TRACE); UROBILINOGEN,URINE 0.2 mg/dL (0.2 mg/dL)
[2019-10-19 01:55] LABS: BACTERIA,URINE FEW /HPF (0-FEW); RBC,URINE OCC /HPF (0-2); WBC,URINE >40 /HPF (0-4)
[2019-10-19 01:56] LABS: SQUAMOUS EPITHELIAL CELL,UR FEW /LPF
--- NOTE | 2019-10-19 02:02 | PHYS DOC ---
Past Medical History Past Medical History: Angina, Anxiety, Arthritis, Asthma, CHF, COPD, Depression, Hypertension Additional Past Medical Histor: insomnia, Left BBB, stable angina, pacemaker Past Surgical History: Hysterectomy, Other Additional Past Surgical Histo: 2 heart cath without stents, bilat knee repair, PACEMAKER Smoking Status: Former Smoker Alcohol Use: None Drug Use: None General Adult EDM: Chief Complaint: CHEST PAIN HPI: HPI: Patient is a 49 year old female who presents with complaint of intermittent chest pain that started yesterday at about 4 PM. Patient states that pain radiates into the left shoulder. She denies any nausea, vomiting or diaphoresis. She describes pain as like a pressure. She denies any cough or shortness of breath. Patient states that she does have a cardiac history. She denies any alleviating factors. [] Review of Systems: Review of Systems: Constitutional: Denies fever or chills. [] Respiratory: Denies cough or shortness of breath. [] Cardiovascular: Complains of chest pain. [] GI: Denies abdominal pain, nausea, vomiting, bloody stools or diarrhea. [] Neurologic: Denies headache, focal weakness or sensory changes. [] A full 10 point review of systems has been reviewed and is otherwise negative. Heart Score: HEART Score for Chest Pain: HEART Score for Chest Pain Response (Comments) Value History Moderately Suspicious 1 ECG Nonspecific Repolarizatio 1 Age >45 - < 65 1 Risk Factors >3 Risk Factors or Hx CAD 2 Troponin < Normal Limit 0 Total 5 Risk Factors: Risk Factors: DM, Current or recent (<one month) smoker, HTN, HLP, family history of CAD, obesity. Risk Scores: Score 0 - 3: 2.5% MACE over next 6 weeks - Discharge Home Score 4 - 6: 20.3% MACE over next 6 weeks - Admit for Clinical Observation Score 7 - 10: 72.7% MACE over next 6 weeks - Early Invasive Strategies Current Medications: Current Medications Medications (Trade) Dose Ordered Sig/Kary Start Time Stop Time Status Last Admin Dose Admin Morphine Sulfate (Morphine Sulfate) 4 mg PRN Q15MIN PRN 10/19/19 00:30 10/20/19 00:29 10/19/19 01:12 4 MG Ondansetron HCl (Zofran) 4 mg 1X ONCE 10/19/19 00:30 10/19/19 00:36 DC 10/19/19 00:43 4 MG Allergies: Allergies: Allergies Coded Allergies Type Severity Reaction Last Updated Verified iodine Allergy Severe IV dye, anaphylaxis 01/29/14 Yes isosorbide Allergy Mild 03/21/16 Yes Physical Exam: PE: Constitutional: Well developed, well nourished, no acute distress, non-toxic appearance. [] HENT: Normocephalic, atraumatic, bilateral external ears normal, oropharynx moist, no oral exudates, nose normal. [] Eyes: PERRLA, EOMI, conjunctiva normal, no discharge. [] Neck: Normal range of motion, no tenderness, supple, no stridor. [] Cardiovascular: Regular rate and rhythm [] Lungs & Thorax: Bilateral breath sounds clear to auscultation [] Abdomen: Bowel sounds normal, soft, no tenderness. [] Skin: Warm, dry, no erythema, no rash. [] Extremities: No tenderness, no cyanosis, no clubbing, ROM intact, no edema. [] Neurologic: Alert and oriented X 3, no focal deficits noted. [] Current Patient Data: Labs: Laboratory Tests Test 10/19/19 00:34 10/19/19 01:17 White Blood Count 9.5 x10^3/uL (4.0-11.0) Red Blood Count 5.09 x10^6/uL (3.50-5.40) Hemoglobin 14.3 g/dL (12.0-15.5) Hematocrit 43.1 % (36.0-47.0) Mean Corpuscular Volume 85 fL (79-100) Mean Corpuscular Hemoglobin 28 pg (25-35) Mean Corpuscular Hemoglobin Concent 33 g/dL (31-37) Red Cell Distribution Width 14.1 % (11.5-14.5) Platelet Count 199 x10^3/uL (140-400) Neutrophils (%) (Auto) 63 % (31-73) Lymphocytes (%) (Auto) 24 % (24-48) Monocytes (%) (Auto) 9 % (0-9) Eosinophils (%) (Auto) 3 % (0-3) Basophils (%) (Auto) 1 % (0-3) Neutrophils # (Auto) 6.0 x10^3/uL (1.8-7.7) Lymphocytes # (Auto) 2.3 x10^3/uL (1.0-4.8) Monocytes # (Auto) 0.8 x10^3/uL (0.0-1.1) Eosinophils # (Auto) 0.3 x10^3/uL (0.0-0.7) Basophils # (Auto) 0.1 x10^3/uL (0.0-0.2) Sodium Level 140 mmol/L (136-145) Potassium Level 3.9 mmol/L (3.5-5.1) Chloride Level 106 mmol/L (98-107) Carbon Dioxide Level 27 mmol/L (21-32) Anion Gap 7 (6-14) Blood Urea Nitrogen 21 mg/dL (7-20) H Creatinine 1.1 mg/dL (0.6-1.0) H Estimated GFR (Cockcroft-Gault) 63.6 BUN/Creatinine Ratio 19 (6-20) Glucose Level 100 mg/dL (70-99) H Calcium Level 8.4 mg/dL (8.5-10.1) L Magnesium Level 1.3 mg/dL (1.8-2.4) L Total Bilirubin 0.2 mg/dL (0.2-1.0) Aspartate Amino Transferase (AST) 12 U/L (15-37) L Alanine Aminotransferase (ALT) 27 U/L (14-59) Alkaline Phosphatase 72 U/L (46-116) Troponin I Quantitative < 0.017 ng/mL (0.000-0.055) XQ-Pwp-B-Type Natriuretic Peptide 582 pg/mL (0-124) H Total Protein 6.7 g/dL (6.4-8.2) Albumin 3.3 g/dL (3.4-5.0) L Albumin/Globulin Ratio 1.0 (1.0-1.7) Lipase 57 U/L (73-393) L Urine Collection Type Unknown Urine Color Yellow Urine Clarity Clear Urine pH 5.5 (<5.0-8.0) Urine Specific [place] 1.010 (1.000-1.030) Urine Protein Negative mg/dL (NEG-TRACE) Urine Glucose (UA) Negative mg/dL (NEG) Urine Ketones (Stick) Negative mg/dL (NEG) Urine Blood Negative (NEG) Urine Nitrite Negative (NEG) Urine Bilirubin Negative (NEG) Urine Urobilinogen Dipstick 0.2 mg/dL (0.2 mg/dL) Urine Leukocyte Esterase Large (NEG) Urine RBC Occ /HPF (0-2) Urine WBC >40 /HPF (0-4) Urine Squamous Epithelial Cells Few /LPF Urine Bacteria Few /HPF (0-FEW) Urine Mucus Slight /LPF Laboratory Tests 10/19/19 00:34 Laboratory Tests 10/19/19 00:34 Vital Signs: Vital Signs Date Time Temp Pulse Resp B/P (MAP) Pulse Ox O2 Delivery O2 Flow Rate FiO2 10/19/19 01:22 98.3 76 24 169/79 (109) 100 Nasal Cannula 2.0 98.3 EKG: EKG: [] Radiology/Procedures: Radiology/Procedures: [] Course & Med Decision Making: Course & Med Decision Making Pertinent Labs and Imaging studies reviewed. (See chart for details) [] Dragon Disclaimer: Dragon Disclaimer: This electronic medical record was generated, in whole or in part, using a voice recognition dictation system. Departure Departure Impression: Primary Impression: Chest pain Qualified Codes: R07.9 - Chest pain, unspecified Disposition: 09 ADMITTED INPATIENT Admitting Physician: STEPHAN Condition: IMPROVED Referrals: NURIA NIX MD (PCP) Justicifation of Admission Dx: Justifications for Admission: Justification of Admission Dx: Comment: (Chest pain) NEVA COOK Jr. DO Oct 19, 2019 02:02
[2019-10-19] MEDS ORDERED: ONDANSETRON PF 4 MG/2 ML VIAL. IV PRN (02:15)
[2019-10-19] MEDS ORDERED: MORPHINE SULFATE 4 MG/ML VIAL. IV PRN (02:15)
[2019-10-19 03:10] VITALS: BP 181/94
[2019-10-19] MEDS ORDERED: OXYC-325 PO (03:53)
[2019-10-19] MEDS ORDERED: SPIR50TA PO (03:53)
[2019-10-19] MEDS ORDERED: APIX5TAB PO (04:03)
--- NOTE | 2019-10-19 04:52 | RAD ---
EXAM: CHEST ONE VIEW. HISTORY: Chest one. COMPARISON: 06/13/2019. FINDINGS: A frontal view of the chest is obtained. A left-sided pacemaker/defibrillator has its leads in the right atrium, right ventricle and a left cardiac vein. There is mild atelectasis or edema in the bases. There is no pneumothorax or pleural effusion. The heart is mildly enlarged. IMPRESSION: 1. Mild basilar atelectasis versus edema. Mild cardiomegaly. Electronically signed by: Shlomo Cruz MD (10/19/2019 4:50 AM) [facility]
--- NOTE | 2019-10-19 06:09 | EKG ---
[facility] [address] [place] [address] Test Date: 2019-10-19 Test Time: 00:19:04 Pat Name: PASCALE MACDONALD Department: Room: 200 1 Gender: F Internal Audit Senior Manager: : [id number] Requested By: NEVA COOK Order Number: [id number] Reading MD: Hansel Moss MD Measurements Intervals [place] Rate: 86 P: 65 ME: 124 QRS: 74 QRSD: 162 T: -171 QT: 432 QTc: 520 Interpretive Statements SINUS RHYTHM V-PACED Electronically Signed On 10-19-2019 12:47:21 CDT by Hansel Moss MD
[2019-10-19 06:51] VITALS: BP 151/71
--- NOTE | 2019-10-19 09:04 | PDOC2 ---
ALINE BARCENAS SLIPMAN 10/19/19 0904: CARDIAC CONSULT DATE OF CONSULT Date of Consult DATE: 10/19/19 TIME: 09:00 REASON FOR CONSULT Reason for Consult: Chest pain REFERRING PHYSICIAN Referring Physician: Dr. Cosme SOURCE Source: Chart review, Patient HISTORY OF PRESENT ILLNESS HISTORY OF PRESENT ILLNESS This is a 49 yo female who presented with complaints of chest pain. Patient reports pain began yesterday about 4 pm. Woke her up from sleep. Located in her central chest. Describes as throbbing pain. Radiated to her left shoulder. No associated dizziness, diaphoresis, SOA, palpitations, or nausea/vomiting. Took nitro tab at home and pain resolved within 15 mins. Yesterday, patient continued intermittently throughout the day so she decided to come to the ED for further evaluation and treatment. Blood pressure was elevated upon arrival. Patient reports compliance with meds. Of note, has h/o chronic chest pain. Patient reports this pain to be the exact same as what she has experienced in the past and has underwent a couple of heart catheterizations that did not show significant obstructive disease. No further pain overnight. PAST MEDICAL HISTORY Cardiovascular: CHF (NICM), HTN, Hyperlipidemia, Other (chronic LBBB) Pulmonary: Asthma, COPD, Other (CARLI) Psych: Anxiety, Depression Musculoskeletal: Osteoarthritis PAST SURGICAL HISTORY Past Surgical History: Pacemaker (AICD ), Hysterectomy FAMILY HISTORY Family History: Heart Disease, Hypertension SOCIAL HISTORY Smoke: <1 pack per day ALCOHOL: none Drugs: None Lives: with Family CURRENT MEDICATIONS CURRENT MEDICATIONS Current Medications Medications (Trade) Dose Ordered Sig/Kary Route PRN Reason Start Time Stop Time Status Last Admin Dose Admin Morphine Sulfate (Morphine Sulfate) 4 mg PRN Q15MIN PRN IV/SQ PAIN GREATER THAN 3/10 10/19/19 00:30 10/20/19 00:29 10/19/19 01:12 Ondansetron HCl (Zofran) 4 mg 1X ONCE IVP 10/19/19 00:30 10/19/19 00:36 DC 10/19/19 00:43 ALLERGIES ALLERGIES: Coded Allergies: iodine (Verified Allergy, Severe, IV dye, anaphylaxis, 01/29/14) isosorbide (Verified Allergy, Mild, 03/21/16) ROS Review of System 14 point ROS conducted with pertinent positives noted above in HPI PHYSICAL EXAM General: Alert, Oriented X3, Cooperative, No acute distress HEENT: Atraumatic, Mucous membr. moist/pink Lungs: Clear to auscultation, Normal air movement Heart: Regular rate Abdomen: Soft, No tenderness Extremities: No edema Skin: No significant lesion Neuro: Normal speech, Sensation intact Psych/Mental Status: Mental status NL, Mood NL MUSCULOSKELETAL: Osteoarthritic changes both hands VITALS/I&O VITALS/I&O: Vital Signs Date Time Temp Pulse Resp B/P (MAP) Pulse Ox O2 Delivery O2 Flow Rate FiO2 10/19/19 06:51 97.9 63 22 151/71 (97) 100 Nasal Cannula 2.0 97.9 I & O 10/18/19 10/18/19 10/19/19 15:00 23:00 07:00 Intake Total 0 ml Balance 0 ml LABS Lab: Laboratory Tests Test 10/19/19 00:34 10/19/19 01:17 10/19/19 05:15 10/19/19 08:00 White Blood Count 9.5 x10^3/uL (4.0-11.0) Red Blood Count 5.09 x10^6/uL (3.50-5.40) Hemoglobin 14.3 g/dL (12.0-15.5) Hematocrit 43.1 % (36.0-47.0) Mean Corpuscular Volume 85 fL (79-100) Mean Corpuscular Hemoglobin 28 pg (25-35) Mean Corpuscular Hemoglobin Concent 33 g/dL (31-37) Red Cell Distribution Width 14.1 % (11.5-14.5) Platelet Count 199 x10^3/uL (140-400) Neutrophils (%) (Auto) 63 % (31-73) Lymphocytes (%) (Auto) 24 % (24-48) Monocytes (%) (Auto) 9 % (0-9) Eosinophils (%) (Auto) 3 % (0-3) Basophils (%) (Auto) 1 % (0-3) Neutrophils # (Auto) 6.0 x10^3/uL (1.8-7.7) Lymphocytes # (Auto) 2.3 x10^3/uL (1.0-4.8) Monocytes # (Auto) 0.8 x10^3/uL (0.0-1.1) Eosinophils # (Auto) 0.3 x10^3/uL (0.0-0.7) Basophils # (Auto) 0.1 x10^3/uL (0.0-0.2) Sodium Level 140 mmol/L (136-145) Potassium Level 3.9 mmol/L (3.5-5.1) Chloride Level 106 mmol/L (98-107) Carbon Dioxide Level 27 mmol/L (21-32) Anion Gap 7 (6-14) Blood Urea Nitrogen 21 mg/dL (7-20) H Creatinine 1.1 mg/dL (0.6-1.0) H Estimated GFR (Cockcroft-Gault) 63.6 BUN/Creatinine Ratio 19 (6-20) Glucose Level 100 mg/dL (70-99) H Calcium Level 8.4 mg/dL (8.5-10.1) L Magnesium Level 1.3 mg/dL (1.8-2.4) L Total Bilirubin 0.2 mg/dL (0.2-1.0) Aspartate Amino Transferase (AST) 12 U/L (15-37) L Alanine Aminotransferase (ALT) 27 U/L (14-59) Alkaline Phosphatase 72 U/L (46-116) Troponin I Quantitative < 0.017 ng/mL (0.000-0.055) 0.019 ng/mL (0.000-0.055) 0.021 ng/mL (0.000-0.055) KN-Oao-W-Type Natriuretic Peptide 582 pg/mL (0-124) H Total Protein 6.7 g/dL (6.4-8.2) Albumin 3.3 g/dL (3.4-5.0) L Albumin/Globulin Ratio 1.0 (1.0-1.7) Lipase 57 U/L (73-393) L Urine Collection Type Unknown Urine Color Yellow Urine Clarity Clear Urine pH 5.5 (<5.0-8.0) Urine Specific [place] 1.010 (1.000-1.030) Urine Protein Negative mg/dL (NEG-TRACE) Urine Glucose (UA) Negative mg/dL (NEG) Urine Ketones (Stick) Negative mg/dL (NEG) Urine Blood Negative (NEG) Urine Nitrite Negative (NEG) Urine Bilirubin Negative (NEG) Urine Urobilinogen Dipstick 0.2 mg/dL (0.2 mg/dL) Urine Leukocyte Esterase Large (NEG) Urine RBC Occ /HPF (0-2) Urine WBC >40 /HPF (0-4) Urine Squamous Epithelial Cells Few /LPF Urine Bacteria Few /HPF (0-FEW) Urine Mucus Slight /LPF Laboratory Tests 10/19/19 00:34 Laboratory Tests 10/19/19 00:34 ECHOCARDIOGRAM ECHOCARDIOGRAM No regional wall motion abnormalities are seen. Overall LV systolic function appears normal. The estimated left ventricular ejection fraction is 55%. Left ventricular contractility appears similar when compared with the prior echocardiogram performed on 03/18/18. There is mild concentric left ventricular hypertrophy. Right ventricular contractility appears normal. Normal atrial chamber dimensions. Mild aortic valve regurgitation is noted by Doppler exam. No pericardial effusion is seen. 01/19/19 - 2-D + DOPPLER ECHOCARDIOGRAM <Conclusion> The left ventricular systolic function is mildly impaired. The Ejection Fraction is 45-50%. Transmitral Doppler flow pattern is Grade I-abnormal relaxation pattern. Pacer lead noted in RA/RV. Doppler and Color Flow revealed mild aortic regurgitation. There is no evidence of significant pericardial effusion. DATE: 06/15/19 09 STRESS TEST STRESS TEST Conclusion 1. Left Bundle Branch Block with no further electrocardiographic changes with pharmacological stress. 2. Multilple perfusion defects seen with the stress study. 3. No rest study was performed. 4. Insufficient counts with prone imaging for it to be interpretable 5. .Decreased wall motion and wall thickening with an ejection fraction of 36%. 6. Incomplete and so uniterpretable myocardial perfusion imaging study. 7. Probable high risk for future cardiac events. DATE: 10/21/13 192 ASSESSMENT/PLAN ASSESSMENT/PLAN 1. Chest pain, mixed features. AMI ruled out. Reports pain to be same as previous when she underwent cath, which did not show any obstructive disease. Recent echo as noted above. 2. CAD; mild, non-obstructive per cath 2014 per review of [facility] records 3. H/o NICM and chronic LBBB. s/p BiV/ DEVIL TENDER-D. Most recent echo shows LV recovery with EF of 45-50% as noted above. Follows with Dr. Buck with [facility]. Recent device check with normal function 4. Accelerated hypertension; remains elevated 5. Hyperlipidemia 6. Probable CARLI 7. COPD with tobaccoism; discussed/encouraged cessation 8. Hypomagnesemia 9. H/o probable PE (06/25); VQ scan with high probability of PE. CTA not performed due to iodine allergy. Warfarin was initiated and transitioned to Eliquis on an outpatient basis Recommendations Trend troponin Lipids, TSH ASA Replace Mg Resume home anit HTN therapy HF optimization with BB, ARB, and diuretic therapy Outpatient sleep study Probable outpatient ischemic evaluation Supportive care LÓPEZ YOST MD 10/19/19 1624: CARDIAC CONSULT ASSESSMENT/PLAN ASSESSMENT/PLAN Patient seen and examined. Agree with SIGNAL TESTER's assessment and plan. Chest pain with mixed features. Myocardial infarction has been ruled out. Recent 2D echo showed LVEF 45 to 50%. Chronic systolic heart failure clinically well compensated. Blood pressure elevated despite starting home antihypertensives. Add Norvasc for better control. Cardiac catheterization 2014 results noted. Plan ischemic evaluation as an outpatient. Thank you for your consultation. ALINE BARCENAS APRN Oct 19, 2019 09:04 LÓPEZ YOST MD Oct 19, 2019 16:24
[2019-10-19] MEDS ORDERED: MAGNESIUM SULFATE 2GM 50 ML IV ONE (09:30)
[2019-10-19 09:59] LABS: PROTHROMBIN TIME PATIENT 12.3 SEC (11.7-14.0)
[2019-10-19 10:19] VITALS: BP 186/87
[2019-10-19] MEDS ORDERED: ACETAMINOPHEN 325 MG TABLET. PO PRN ×2 (10:30→11:00)
[2019-10-19] MEDS ORDERED: NITROGLYCERIN SUBLINGUAL 0.4 MG BOTTLE OF 25. SL PRN (11:00)
[2019-10-19] MEDS ORDERED: ALBUTEROL SULFATE 2.5 MG/3 ML NEBU. INH PRN (11:00)
[2019-10-19] MEDS ORDERED: oxyCODONE/APAP 5/325 1 TAB TABLET PO PRN (11:00)
[2019-10-19] MEDS ORDERED: traZODone 50 MG TABLET. PO PRN (11:00)
--- NOTE | 2019-10-19 11:06 | PDOC1 ---
History and Physical Date of Admission Date of Admission 10/19/2019 Identification/Chief Complaint Chief Complaint My head hurts Source Source: Chart review, Patient History of Present Illness History of Present Illness Patient with past medical history of PE and hypertenstion who was in her usual state of health until the night prior to her admission when she presented chest discomfort over the precordial area no radiation to the neck or her arm. Patient refers having the chest discomfort intermittently lasting less than 5 minutes. Most of her symptoms were of headache and she noticed that her blood pressure was quite high yesterday. She denies any dietary transgressions no recent changes to her medications have been reported either. The patient denies any diaphoresis sensation of impending doom no nausea or vomiting associated with the chest discomfort. She describes the discomfort as a pressure but no cough sputum production no pleurisy has been reported. She has been adherent to her medications and at the time of my evaluation she is in moderate distress due to her headache. No other complaints were voiced no paroxysmal nocturnal dyspnea and orthopnea no increase in salt intake was reported either. She is being admitted for cardiac evaluation Past Medical History Cardiovascular: CHF (NICM), HTN, Hyperlipidemia, Other (chronic LBBB) Pulmonary: Asthma, COPD, Other (CARLI) Psych: Anxiety, Depression Past Surgical History Past Surgical History: Pacemaker (AICD ), Hysterectomy Family History Family History: Other (Reviewed and found negative and noncontributory) Social History Smoke: No ALCOHOL: none Drugs: None Current Problem List Problem List Problems Medical Problems: (1) Chest pain Status: Acute Current Medications Current Medications Current Medications Medications (Trade) Dose Ordered Sig/Kary Start Time Stop Time Status Last Admin Dose Admin Acetaminophen (Tylenol) 650 mg PRN Q6HRS PRN 10/19/19 10:30 10/19/19 10:31 650 MG Magnesium Sulfate 50 ml @ 25 mls/hr 1X ONCE 10/19/19 09:30 10/19/19 11:29 10/19/19 10:32 25 MLS/HR Morphine Sulfate (Morphine Sulfate) 4 mg PRN Q2HR PRN 10/19/19 02:15 10/20/19 02:14 Ondansetron HCl (Zofran) 4 mg PRN Q8HRS PRN 10/19/19 02:15 10/20/19 02:14 Allergies Allergies Allergies Coded Allergies Type Severity Reaction Last Updated Verified iodine Allergy Severe IV dye, anaphylaxis 01/29/14 Yes isosorbide Allergy Mild 03/21/16 Yes ROS Review of System CONSTITUTIONAL: No fever or chills EYES: No recent changes SKIN: No rash or itching CARDIOVASCULAR: No chest pain, syncope, palpitations, or edema RESPIRATORY: No SOB or cough GASTROINTESTINAL: No nausea, vomiting or abdominal pain NEUROLOGICAL: No headaches or weakness ENDOCRINE: No cold or heat intolerance GENITOURINARY: No urgency or frequency of urination MUSCULOSKELETAL: No back pain or joint pain LYMPHATICS: No enlarged lymph nodes PSYCHIATRIC: No anxiety or depression Physical Exam Physical Exam GEN.: No apparent distress. Alert and oriented. HEENT: Head is normocephalic, atraumatic NECK: Supple. LUNGS: Clear to auscultation. HEART: RRR, S1, S2 present. Peripheral pulses intact ABDOMEN: Soft, nontender. Positive bowel sounds. EXTREMITIES: Without any cyanosis. NEUROLOGIC: Normal speech, normal tone PSYCHIATRIC: Normal affect, normal mood. SKIN: No ulcerations Vitals Vitals Vital Signs Date Time Temp Pulse Resp B/P (MAP) Pulse Ox O2 Delivery O2 Flow Rate FiO2 10/19/19 10:19 98.1 65 22 186/87 (120) 97 Nasal Cannula 2.0 98.1 Labs Labs Laboratory Tests Test 10/19/19 00:34 10/19/19 01:17 10/19/19 05:15 10/19/19 08:00 White Blood Count 9.5 x10^3/uL (4.0-11.0) Red Blood Count 5.09 x10^6/uL (3.50-5.40) Hemoglobin 14.3 g/dL (12.0-15.5) Hematocrit 43.1 % (36.0-47.0) Mean Corpuscular Volume 85 fL (79-100) Mean Corpuscular Hemoglobin 28 pg (25-35) Mean Corpuscular Hemoglobin Concent 33 g/dL (31-37) Red Cell Distribution Width 14.1 % (11.5-14.5) Platelet Count 199 x10^3/uL (140-400) Neutrophils (%) (Auto) 63 % (31-73) Lymphocytes (%) (Auto) 24 % (24-48) Monocytes (%) (Auto) 9 % (0-9) Eosinophils (%) (Auto) 3 % (0-3) Basophils (%) (Auto) 1 % (0-3) Neutrophils # (Auto) 6.0 x10^3/uL (1.8-7.7) Lymphocytes # (Auto) 2.3 x10^3/uL (1.0-4.8) Monocytes # (Auto) 0.8 x10^3/uL (0.0-1.1) Eosinophils # (Auto) 0.3 x10^3/uL (0.0-0.7) Basophils # (Auto) 0.1 x10^3/uL (0.0-0.2) Sodium Level 140 mmol/L (136-145) Potassium Level 3.9 mmol/L (3.5-5.1) Chloride Level 106 mmol/L (98-107) Carbon Dioxide Level 27 mmol/L (21-32) Anion Gap 7 (6-14) Blood Urea Nitrogen 21 mg/dL (7-20) Creatinine 1.1 mg/dL (0.6-1.0) Estimated GFR (Cockcroft-Gault) 63.6 BUN/Creatinine Ratio 19 (6-20) Glucose Level 100 mg/dL (70-99) Calcium Level 8.4 mg/dL (8.5-10.1) Magnesium Level 1.3 mg/dL (1.8-2.4) Total Bilirubin 0.2 mg/dL (0.2-1.0) Aspartate Amino Transf (AST/SGOT) 12 U/L (15-37) Alanine Aminotransferase (ALT/SGPT) 27 U/L (14-59) Alkaline Phosphatase 72 U/L (46-116) Troponin I Quantitative < 0.017 ng/mL (0.000-0.055) 0.019 ng/mL (0.000-0.055) 0.021 ng/mL (0.000-0.055) ES-Jdy-A-Type Natriuretic Peptide 582 pg/mL (0-124) Total Protein 6.7 g/dL (6.4-8.2) Albumin 3.3 g/dL (3.4-5.0) Albumin/Globulin Ratio 1.0 (1.0-1.7) Lipase 57 U/L (73-393) Urine Collection Type Unknown Urine Color Yellow Urine Clarity Clear Urine pH 5.5 (<5.0-8.0) Urine Specific [place] 1.010 (1.000-1.030) Urine Protein Negative mg/dL (NEG-TRACE) Urine Glucose (UA) Negative mg/dL (NEG) Urine Ketones (Stick) Negative mg/dL (NEG) Urine Blood Negative (NEG) Urine Nitrite Negative (NEG) Urine Bilirubin Negative (NEG) Urine Urobilinogen Dipstick 0.2 mg/dL (0.2 mg/dL) Urine Leukocyte Esterase Large (NEG) Urine RBC Occ /HPF (0-2) Urine WBC >40 /HPF (0-4) Urine Squamous Epithelial Cells Few /LPF Urine Bacteria Few /HPF (0-FEW) Urine Mucus Slight /LPF Prothrombin Time 12.3 SEC (11.7-14.0) Prothromb Time International Ratio 1.0 (0.8-1.1) Laboratory Tests Test 10/19/19 00:34 10/19/19 01:17 10/19/19 05:15 10/19/19 08:00 White Blood Count 9.5 x10^3/uL (4.0-11.0) Red Blood Count 5.09 x10^6/uL (3.50-5.40) Hemoglobin 14.3 g/dL (12.0-15.5) Hematocrit 43.1 % (36.0-47.0) Mean Corpuscular Volume 85 fL (79-100) Mean Corpuscular Hemoglobin 28 pg (25-35) Mean Corpuscular Hemoglobin Concent 33 g/dL (31-37) Red Cell Distribution Width 14.1 % (11.5-14.5) Platelet Count 199 x10^3/uL (140-400) Neutrophils (%) (Auto) 63 % (31-73) Lymphocytes (%) (Auto) 24 % (24-48) Monocytes (%) (Auto) 9 % (0-9) Eosinophils (%) (Auto) 3 % (0-3) Basophils (%) (Auto) 1 % (0-3) Neutrophils # (Auto) 6.0 x10^3/uL (1.8-7.7) Lymphocytes # (Auto) 2.3 x10^3/uL (1.0-4.8) Monocytes # (Auto) 0.8 x10^3/uL (0.0-1.1) Eosinophils # (Auto) 0.3 x10^3/uL (0.0-0.7) Basophils # (Auto) 0.1 x10^3/uL (0.0-0.2) Sodium Level 140 mmol/L (136-145) Potassium Level 3.9 mmol/L (3.5-5.1) Chloride Level 106 mmol/L (98-107) Carbon Dioxide Level 27 mmol/L (21-32) Anion Gap 7 (6-14) Blood Urea Nitrogen 21 mg/dL (7-20) Creatinine 1.1 mg/dL (0.6-1.0) Estimated GFR (Cockcroft-Gault) 63.6 BUN/Creatinine Ratio 19 (6-20) Glucose Level 100 mg/dL (70-99) Calcium Level 8.4 mg/dL (8.5-10.1) Magnesium Level 1.3 mg/dL (1.8-2.4) Total Bilirubin 0.2 mg/dL (0.2-1.0) Aspartate Amino Transf (AST/SGOT) 12 U/L (15-37) Alanine Aminotransferase (ALT/SGPT) 27 U/L (14-59) Alkaline Phosphatase 72 U/L (46-116) Troponin I Quantitative < 0.017 ng/mL (0.000-0.055) 0.019 ng/mL (0.000-0.055) 0.021 ng/mL (0.000-0.055) AT-Dck-G-Type Natriuretic Peptide 582 pg/mL (0-124) Total Protein 6.7 g/dL (6.4-8.2) Albumin 3.3 g/dL (3.4-5.0) Albumin/Globulin Ratio 1.0 (1.0-1.7) Lipase 57 U/L (73-393) Urine Collection Type Unknown Urine Color Yellow Urine Clarity Clear Urine pH 5.5 (<5.0-8.0) Urine Specific [place] 1.010 (1.000-1.030) Urine Protein Negative mg/dL (NEG-TRACE) Urine Glucose (UA) Negative mg/dL (NEG) Urine Ketones (Stick) Negative mg/dL (NEG) Urine Blood Negative (NEG) Urine Nitrite Negative (NEG) Urine Bilirubin Negative (NEG) Urine Urobilinogen Dipstick 0.2 mg/dL (0.2 mg/dL) Urine Leukocyte Esterase Large (NEG) Urine RBC Occ /HPF (0-2) Urine WBC >40 /HPF (0-4) Urine Squamous Epithelial Cells Few /LPF Urine Bacteria Few /HPF (0-FEW) Urine Mucus Slight /LPF Prothrombin Time 12.3 SEC (11.7-14.0) Prothromb Time International Ratio 1.0 (0.8-1.1) VTE Prophylaxis Ordered VTE Prophylaxis Devices: Yes VTE Pharmacological Prophylaxi: Yes Assessment/Plan Assessment/Plan Chest pain ACS ruled out with 3 sets of cardiac enzymes negative Hypertensive urgency? History of pulmonary embolism History of COPD Essential hypertension currently uncontrolled with no reported medication nonadherence Morbid obesity with a BMI of 44 History of chronic congestive heart failure with systolic dysfunction last echocardiogram done in June 2019 ECHO results: The left ventricular systolic function is mildly impaired. The Ejection Fraction is 45-50%. Transmitral Doppler flow pattern is Grade I-abnormal relaxation pattern. Pacer lead noted in RA/RV. Doppler and Color Flow revealed mild aortic regurgitation. There is no evidence of significant pericardial effusion. Plan Cardiology consult Further recommendations will based on clinical Resume home medication Tylenol for headache follow recommendations from event management consultant. Justicifation of Admission Dx: Justifications for Admission: Justification of Admission Dx: Yes Angina: Symp at Rest MARINA MEDINA MD Oct 19, 2019 11:06
--- NOTE | 2019-10-19 11:40 | NUR ---
SS following for discharge planning. SS reviewed pt chart and discussed with pt RN. Pt is from home with spouse and is currently requiring oxygen PRN. Cardiology consulted. SS will continue to follow for discharge planning.
[2019-10-19 11:43] LABS: CHOLESTEROL/HDL RATIO 3.6
[2019-10-19] MEDS: BUDESONIDE 0.5 MG/2 ML NEBU. NEB SCH ×2 (12:00→20:01)
[2019-10-19] MEDS: ALBUTEROL SULFATE 2.5 MG/3 ML NEBU. NEB SCH ×3 (12:00→20:01)
[2019-10-19] MEDS: LOSARTAN POTASSIUM 50 MG TABLET. PO SCH (14:02)
[2019-10-19] MEDS: SPIRONOLACTONE 25 MG TABLET PO SCH (14:03)
[2019-10-19] MEDS: POTASSIUM CHLORIDE 20 MEQ TABLET.ER. PO SCH (14:03)
[2019-10-19] MEDS: APIXABAN 5 MG TABLET. PO SCH ×2 (14:03→21:01)
[2019-10-19] MEDS: CARVEDILOL 12.5 MG TABLET. PO SCH ×2 (14:03→16:52)
[2019-10-19] MEDS: FUROSEMIDE 20 MG TABLET PO SCH ×2 (14:04→16:52)
[2019-10-19 14:14] VITALS: BP 158/70
[2019-10-19] MEDS ORDERED: ANTI-COAG MONITOR BY PHARMACY. MC PRN (16:30)
[2019-10-19] MEDS: amLODIPine BESYLATE 5 MG TABLET PO SCH (16:30)
--- NOTE | 2019-10-19 16:54 | NUR ---
Patient refused to take Norvasc states that she was on the med prior and was told by her doctor to stop taking it.
[2019-10-19 18:09] VITALS: BP 147/67
--- NOTE | 2019-10-19 20:49 | NUR ---
Assessment completed vss poc explained pt denied pain will resume care and continue to monitor pt.
[2019-10-19] MEDS ORDERED: MONTELUKAST SODIUM 10 MG TABLET. PO SCH (21:00)
[2019-10-19] MEDS ORDERED: ATORVASTATIN CALCIUM 40 MG TABLET. PO SCH (21:00)
[2019-10-19] MEDS ORDERED: NON FORMULARY ITEM (Mometasone/Formoterol (Dulera 200 Mcg/5 Mcg Inhaler) 1 PUFF) INH SCH (21:00)
[2019-10-19] MEDS ORDERED: AMITRIPTYLINE HCL 25 MG TABLET. PO SCH (21:00)
[2019-10-19 23:01] VITALS: BP 170/76
[2019-10-20 03:00] VITALS: BP 141/68
[2019-10-20 07:00] VITALS: BP 164/84
[2019-10-20] MEDS: ALBUTEROL SULFATE 2.5 MG/3 ML NEBU. NEB SCH ×3 (07:11→15:12)
[2019-10-20] MEDS: BUDESONIDE 0.5 MG/2 ML NEBU. NEB SCH (07:11)
[2019-10-20] MEDS: amLODIPine BESYLATE 5 MG TABLET PO SCH (07:12)
[2019-10-20] MEDS ORDERED: NON FORMULARY ITEM (Tiotropium Bromide (Spiriva) 1 PUFF) INH SCH (09:00)
[2019-10-20] MEDS: FUROSEMIDE 20 MG TABLET PO SCH ×2 (09:08→14:34)
[2019-10-20] MEDS: APIXABAN 5 MG TABLET. PO SCH (09:08)
[2019-10-20] MEDS: LOSARTAN POTASSIUM 50 MG TABLET. PO SCH (09:09)
[2019-10-20] MEDS: CARVEDILOL 12.5 MG TABLET. PO SCH ×2 (09:09→17:18)
[2019-10-20] MEDS: POTASSIUM CHLORIDE 20 MEQ TABLET.ER. PO SCH (09:09)
[2019-10-20] MEDS: SPIRONOLACTONE 25 MG TABLET PO SCH (09:09)
--- NOTE | 2019-10-20 10:00 | PDOC3 ---
Discharge Summary Visit Information Date of Admission: Oct 19, 2019 Date of Discharge: Oct 20, 2019 Admitting Diagnosis Comment: Chest pain ACS ruled out with 3 sets of cardiac enzymes negative Hypertensive urgency? History of pulmonary embolism History of COPD Essential hypertension currently uncontrolled with no reported medication nonadherence Morbid obesity with a BMI of 44 History of chronic congestive heart failure with systolic dysfunction last echocardiogram done in June 2019 ECHO results: The left ventricular systolic function is mildly impaired. The Ejection Fraction is 45-50%. Transmitral Doppler flow pattern is Grade I-abnormal relaxation pattern. Pacer lead noted in RA/RV. Doppler and Color Flow revealed mild aortic regurgitation. There is no evidence of significant pericardial effusion. Final Diagnosis Problems Medical Problems: (1) Chest pain Status: Acute Chest pain ACS ruled out with 3 sets of cardiac enzymes negative Hypertensive urgency? History of pulmonary embolism History of COPD Essential hypertension currently uncontrolled with no reported medication nonadherence Morbid obesity with a BMI of 44 History of chronic congestive heart failure with systolic dysfunction last echocardiogram done in June 2019 ECHO results: The left ventricular systolic function is mildly impaired. The Ejection Fraction is 45-50%. Transmitral Doppler flow pattern is Grade I-abnormal relaxation pattern. Pacer lead noted in RA/RV. Doppler and Color Flow revealed mild aortic regurgitation. There is no evidence of significant pericardial effusion. Brief Hospital Course Allergies Allergies Coded Allergies Type Severity Reaction Last Updated Verified iodine Allergy Severe IV dye, anaphylaxis 01/29/14 Yes isosorbide Allergy Mild 03/21/16 Yes Vital Signs Vital Signs Date Time Temp Pulse Resp B/P (MAP) Pulse Ox O2 Delivery O2 Flow Rate FiO2 10/20/19 09:09 66 164/84 10/20/19 08:12 Room Air 10/20/19 07:12 99 10/20/19 07:00 97.7 18 97.7 10/19/19 18:09 2.0 Lab Results Laboratory Tests Test 10/19/19 00:34 10/19/19 01:17 10/19/19 05:15 10/19/19 08:00 White Blood Count 9.5 x10^3/uL (4.0-11.0) Red Blood Count 5.09 x10^6/uL (3.50-5.40) Hemoglobin 14.3 g/dL (12.0-15.5) Hematocrit 43.1 % (36.0-47.0) Mean Corpuscular Volume 85 fL (79-100) Mean Corpuscular Hemoglobin 28 pg (25-35) Mean Corpuscular Hemoglobin Concent 33 g/dL (31-37) Red Cell Distribution Width 14.1 % (11.5-14.5) Platelet Count 199 x10^3/uL (140-400) Neutrophils (%) (Auto) 63 % (31-73) Lymphocytes (%) (Auto) 24 % (24-48) Monocytes (%) (Auto) 9 % (0-9) Eosinophils (%) (Auto) 3 % (0-3) Basophils (%) (Auto) 1 % (0-3) Neutrophils # (Auto) 6.0 x10^3/uL (1.8-7.7) Lymphocytes # (Auto) 2.3 x10^3/uL (1.0-4.8) Monocytes # (Auto) 0.8 x10^3/uL (0.0-1.1) Eosinophils # (Auto) 0.3 x10^3/uL (0.0-0.7) Basophils # (Auto) 0.1 x10^3/uL (0.0-0.2) Sodium Level 140 mmol/L (136-145) Potassium Level 3.9 mmol/L (3.5-5.1) Chloride Level 106 mmol/L (98-107) Carbon Dioxide Level 27 mmol/L (21-32) Anion Gap 7 (6-14) Blood Urea Nitrogen 21 mg/dL (7-20) Creatinine 1.1 mg/dL (0.6-1.0) Estimated GFR (Cockcroft-Gault) 63.6 BUN/Creatinine Ratio 19 (6-20) Glucose Level 100 mg/dL (70-99) Calcium Level 8.4 mg/dL (8.5-10.1) Magnesium Level 1.3 mg/dL (1.8-2.4) Total Bilirubin 0.2 mg/dL (0.2-1.0) Aspartate Amino Transf (AST/SGOT) 12 U/L (15-37) Alanine Aminotransferase (ALT/SGPT) 27 U/L (14-59) Alkaline Phosphatase 72 U/L (46-116) Troponin I Quantitative < 0.017 ng/mL (0.000-0.055) 0.019 ng/mL (0.000-0.055) 0.021 ng/mL (0.000-0.055) MA-Jwb-O-Type Natriuretic Peptide 582 pg/mL (0-124) Total Protein 6.7 g/dL (6.4-8.2) Albumin 3.3 g/dL (3.4-5.0) Albumin/Globulin Ratio 1.0 (1.0-1.7) Lipase 57 U/L (73-393) Urine Collection Type Unknown Urine Color Yellow Urine Clarity Clear Urine pH 5.5 (<5.0-8.0) Urine Specific [place] 1.010 (1.000-1.030) Urine Protein Negative mg/dL (NEG-TRACE) Urine Glucose (UA) Negative mg/dL (NEG) Urine Ketones (Stick) Negative mg/dL (NEG) Urine Blood Negative (NEG) Urine Nitrite Negative (NEG) Urine Bilirubin Negative (NEG) Urine Urobilinogen Dipstick 0.2 mg/dL (0.2 mg/dL) Urine Leukocyte Esterase Large (NEG) Urine RBC Occ /HPF (0-2) Urine WBC >40 /HPF (0-4) Urine Squamous Epithelial Cells Few /LPF Urine Bacteria Few /HPF (0-FEW) Urine Mucus Slight /LPF Triglycerides Level 73 mg/dL (0-150) Cholesterol Level 147 mg/dL (0-200) LDL Cholesterol, Calculated 91 mg/dL (0-100) VLDL Cholesterol, Calculated 15 mg/dL (0-40) Non-HDL Cholesterol Calculated 106 mg/dL (0-129) HDL Cholesterol 41 mg/dL (40-60) Cholesterol/HDL Ratio 3.6 Thyroid Stimulating Hormone (TSH) 1.137 uIU/mL (0.358-3.74) Prothrombin Time 12.3 SEC (11.7-14.0) Prothromb Time International Ratio 1.0 (0.8-1.1) Test 10/19/19 11:50 Troponin I Quantitative < 0.017 ng/mL (0.000-0.055) Laboratory Tests Test 10/19/19 11:50 Troponin I Quantitative < 0.017 ng/mL (0.000-0.055) Brief Hospital Course History of Present Illness Patient with past medical history of PE and hypertenstion who was in her usual state of health until the night prior to her admission when she presented chest discomfort over the precordial area no radiation to the neck or her arm. Patient refers having the chest discomfort intermittently lasting less than 5 minutes. Most of her symptoms were of headache and she noticed that her blood pressure was quite high yesterday. She denies any dietary transgressions no recent changes to her medications have been reported either. The patient denies any diaphoresis sensation of impending doom no nausea or vomiting associated with the chest discomfort. She describes the discomfort as a pressure but no cough sputum production no pleurisy has been reported. She has been adherent to her medications and at the time of my evaluation she is in moderate distress due to her headache. No other complaints were voiced no paroxysmal nocturnal dyspnea and orthopnea no increase in salt intake was reported either. She is being admitted for cardiac evaluation Patient had 3 sets of cardiac enzymes checked with negative findings. The patient was seen in consultation by cardiology. Their recommendations were to optimize her heart failure medications with beta-cornelius ARB and diuretic therapy. She is currently on all 3 medications and given the elevated blood pressure initially was thought that her symptoms may have been related to hypertensive urgency. The patient had records check from and she had a cardiac cath in 2014 and had also an echo recently both did not show obstructive disease. Norvasc was added to her regimen but patient declined since she gave a history of being told by her primary care physician not to take Norvasc. Patient has a an appointment next week with her primary care physician which I have encouraged to maintain. Signs and symptoms of concern and when to seek medical attention were discussed with the patient prior to discharge, she is in good spirits to be going home Assessment Assessment Physical Exam GEN.: No apparent distress. Alert and oriented. HEENT: Head is normocephalic, atraumatic NECK: Supple. LUNGS: Clear to auscultation. HEART: RRR, S1, S2 present. Peripheral pulses intact Discharge Information Condition at Discharge: Improved Follow Up: Weeks Disposition/Orders: D/C to Home Scheduled Amitriptyline Hcl (Amitriptyline Hcl) 25 Mg Tablet, 25 MG PO HS, (Reported) Entered as Reported by: CONCETTA MATAMOROS on 10/18/13 1020 Last Action: Continued on 10/19/19 1059 by MARINA MEDINA MD Apixaban (Eliquis) 5 Mg Tablet, 5 MG PO BID for , (Reported) Entered as Reported by: JAMES VINCENT RN on 10/19/19402 Last Action: Continued on 10/19/191058 by MARINA MEDINA MD Atorvastatin Calcium (Atorvastatin Calcium) 80 Mg Tablet, 80 MG PO HS for HLD, (Reported) Entered as Reported by: LÓPEZ FRAGA on 06/13/19306 Last Action: Converted on 10/19/191058 by MARINA MEDINA MD Carvedilol (Carvedilol) 25 Mg Tablet, 25 MG PO BIDWMEALS for CHF, (Reported) Entered as Reported by: LÓPEZ FRAGA on 06/13/19306 Last Action: Converted on 10/19/191058 by MARINA MEDINA MD Furosemide (Furosemide) 20 Mg Tablet, 20 MG PO BID for CHF, (Reported) Entered as Reported by: LÓPEZ FRAGA on 06/13/19306 Last Action: Continued on 10/19/191058 by MARINA MEDINA MD Losartan Potassium (Losartan Potassium) 100 Mg Tablet, 100 MG PO DAILY for HTN, (Reported) Entered as Reported by: LÓPEZ FRAGA on 06/13/19306 Last Action: Converted on 10/19/191058 by MARINA MEDINA MD Mometasone/Formoterol (Dulera 200 Mcg/5 Mcg Inhaler) 13 Gm Hfa.aer.ad, 1 PUFF INH BID for copd, (Reported) Entered as Reported by: LÓPEZ FRAGA on 06/13/19306 Last Action: Converted on 10/19/191058 by MARINA MEDINA MD Montelukast Sodium (Montelukast Sodium) 10 Mg Tablet, 10 MG PO HS for asthma, (Reported) Entered as Reported by: LÓPEZ FRAGA on 06/13/19306 Last Action: Continued on 10/19/191058 by MARINA MEDINA MD Potassium Chloride (Potassium Chloride ) 20 Meq Tablet.er, 20 MEQ PO DAILY, (Reported) Entered as Reported by: CONCETTA MATAMOROS on 10/18/13 1024 Last Action: Continued on 10/19/191058 by MARINA MEDINA MD Spironolactone (Aldactone) 50 Mg Tablet, 50 MG PO DAILY for , (Reported) Entered as Reported by: JAMES VINCENT RN on 6/15/20 0353 Last Action: Converted on 10/19/191058 by MARINA MEDINA MD Tiotropium Cascade (Spiriva) 18 Mcg Cap.w.dev, 1 PUFF INH DAILY for COPD, (Reported) Entered as Reported by: LÓPEZ FRAGA on 06/13/19 0307 Last Action: Converted on 10/19/191058 by MARINA MEDINA MD Scheduled PRN Albuterol Sulfate (Proair Hfa Inhaler) 8.5 Gm Hfa.aer.ad, 2 PUFF INH PRN Q4HRS PRN for SHORTNESS OF BREATH, Ref 0 (Reported) Entered as Reported by: CONCETTA MATAMOROS on 10/18/13 1019 Last Action: Continued on 10/19/191058 by MARINA MEDINA MD Naproxen (Naproxen) 500 Mg Tablet, 500 MG PO PRN Q12HR PRN for PAIN, (Reported) Entered as Reported by: CONCETTA MATAMOROS on 10/18/13 1016 Last Action: HELD on 10/19/191057 by MARINA MEDINA MD Nitroglycerin (Nitrostat) 0.4 Mg Tab.subl, 0.4 MG SL PRN Q5MIN PRN for CHEST PAIN, (Reported) Entered as Reported by: CONCETTA MATAMOROS on 10/18/13 1027 Last Action: Continued on 10/19/191058 by MARINA MEDINA MD Oxycodone HCl/Acetaminophen (Percocet 5-325 mg Tablet) 1 Each Tablet, 1 TAB PO PRN BID PRN for MDD 2 Tablet(s) for 5 Days, #10 Ref 0 (Reported) Entered as Reported by: JAMES VINCENT RN on 10/19/19352 Last Action: Continued on 10/19/191058 by MARINA MEDINA MD Trazodone Hcl (Trazodone Hcl) 50 Mg Tablet, 25 MG PO PRN QHS PRN for INSOMNIA, (Reported) Entered as Reported by: CONCETTA MATAMOROS on 10/18/13 1011 Last Action: Continued on 10/19/191058 by MARINA MEDINA MD Discontinued Medications Baclofen (Baclofen) 10 Mg Tablet, 10 MG PO TID for MUSCLE RELAXER, #30 Ref 0 (Reported) Entered as Reported by: CONCETTA MATAMOROS on 10/18/13 1021 Last Action: Discontinued on 10/19/19 040 by JAMES VINCENT RN Paroxetine Hcl (Paroxetine Hcl) 20 Mg Tablet, 20 MG PO DAILY for depression, (Reported) Entered as Reported by: LÓPEZ FRAGA on 06/13/19 030 Last Action: Discontinued on 10/19/19404 by JAMES VINCENT RN Justicifation of Admission Dx: Justifications for Admission: Justification of Admission Dx: Yes Angina: Symp at Rest MARINA MEDINA MD Oct 20, 2019 10:00
--- NOTE | 2019-10-20 10:46 | NUR ---
SW following. Discussed with RN, pt discharging home with self care. No SW needs.
--- NOTE | 2019-10-20 12:32 | PDOC ---
NADER LORA BLACK TOP MACHINE OPERATOR 10/20/19 1232: CARDIO Progress Notes Date and Time Date of Service 10/20/2019 Time of Evaluation 1200 Subjective Subjective: No Chest Pain, No shortness of breath, No Palpitations Vitals Vitals Vital Signs Date Time Temp Pulse Resp B/P (MAP) Pulse Ox O2 Delivery O2 Flow Rate FiO2 10/20/19 11:13 99 Room Air 10/20/19 09:09 66 164/84 10/20/19 07:00 97.7 18 97.7 10/19/19 18:09 2.0 Weight Weight [ ] Input and Output Intake and Output Intake and Output 10/20/19 07:00 Intake Total 1460 ml Balance 1460 ml Intake Oral 1460 ml # Voids 3 Microbiology Micro Microbiology 10/19/19 Urine Culture - Final, Complete Physical Exam HEENT: Neck Supple W Full Motion Chest: Symmetric LUNGS: Clear to Auscultation Heart: S1S2, RRR (Paced rhythm) Abdomen: Soft N/T Extremities: No Calf Tenderness Neurology: alert, oriented, follow commands Assessment Assessment 1. Chest pain, mixed features. AMI ruled out. Reports pain to be same as previous when she underwent cath, which did not show any obstructive disease. Recent echo as noted above. 2. CAD; mild, non-obstructive per cath 2014 per review of [facility] records 3. H/o NICM and chronic LBBB. 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 Most recent echo shows LV recovery with EF of 45-50% as noted above. Follows with Dr. Buck with [facility]. Recent device check with normal function 4. Accelerated hypertension; labile, refused amlodipine as she was told not to take this. 5. Hyperlipidemia 6. Probable CARLI 7. COPD with tobaccoism 8. Hypomagnesemia 9. H/o probable PE (06/25); VQ scan with high probability of PE. CTA not performed due to iodine allergy. Warfarin was initiated and transitioned to Eliquis on an outpatient basis Recommendations 1. Continue secondary prevention measures and HF regimen. Consider adding imdur if BP remains labile. 2. Pt does have medtronic lead and [employer] generator. Noted with intermittent abnormal pacer spikes possibly artifact. If this is device related, this could potentially contribute to her discomfort. Will have device interrogated and note if any calibrations are needed. 3. Consider outpt stress test. Follow up with her [facility] technology officer and may need to see [facility] EP pending result above 4. Consider outpatient sleep study 5. Will recheck Mgand also check BMP and will replace lytes as warranted. 6. Smoking cessation 1330 Discussed with Device rep and noted with normal function and no arrhythmias. Possible outside noise disturbance causing the artifcact. OK to DC and will add imdur to her regimen. Justicifation of Admission Dx: Justifications for Admission: Justification of Admission Dx: Yes Angina: Symp at Rest LÓPEZ YOST MD 10/20/19 2013: CARDIO Progress Notes Assessment Assessment Patient seen and examined. Agree with MANAGER OF ENTERPRISE's assessment and plan. Chest pain with mixed features. Myocardial infarction has been ruled out. Recent 2D echo showed LVEF 45 to 50%. Chronic systolic heart failure clinically well compensated. Blood pressure better controlled Cardiac catheterization 2014 results noted. Plan ischemic evaluation as an outpatient. NADER LORA APRN Oct 20, 2019 12:32 LÓPEZ YOST MD Oct 20, 2019 20:13
[2019-10-20] MEDS ORDERED: ISOS30TA4 PO (13:35)
[2019-10-20] MEDS ORDERED: ISOSORBIDE MONONITRATE ER 30 MG TAB.ER.24H PO SCH (14:00)
[2019-10-20 14:48] LABS: CALCIUM 8.4 mg/dL (8.5-10.1); CREATININE 1.3 mg/dL (0.6-1.0); GFR 52.5; MAGNESIUM 1.5 mg/dL (1.8-2.4); POTASSIUM 4.4 mmol/L (3.5-5.1)
[2019-10-20 15:00] VITALS: BP 163/66
[2019-10-20] MEDS ORDERED: HYDR-2869 PO (15:30)
[2019-10-20] MEDS ORDERED: MAGNESIUM SULFATE 2GM 50 ML IV ONE (16:00)
[2019-10-20 17:18] VITALS: BP 163/66
== END 2019-10-20 16:25 | disposition home or self-care (01) | DRG 305 ==
LOC: ER 00:12 → 2 NORTH 02:39 → 2 SOUTH 10-20 16:23
PROVIDERS: ADMIT Internal Medicine; ATTEND Internal Medicine
DX: I16.0 Hypertensive urgency (principal); I42.8 Other cardiomyopathies; I50.22 Chronic systolic (congestive) heart failure; Z68.41 Body mass index [BMI] 40.0-44.9, adult; R07.89 Other chest pain; E78.5 Hyperlipidemia, unspecified; E83.42 Hypomagnesemia; F17.210 Nicotine dependence, cigarettes, uncomplicated; E66.01 Morbid (severe) obesity due to excess calories; G47.33 Obstructive sleep apnea (adult) (pediatric); I11.0 Hypertensive heart disease with heart failure; I25.10 Atherosclerotic heart disease of native coronary artery without angina pectoris; J44.9 Chronic obstructive pulmonary disease, unspecified; Z82.49 Family history of ischemic heart disease and other diseases of the circulatory system; Z86.711 Personal history of pulmonary embolism; Z90.710 Acquired absence of both cervix and uterus; F32.9 Major depressive disorder, single episode, unspecified; F41.9 Anxiety disorder, unspecified; G89.29 Other chronic pain; M19.90 Unspecified osteoarthritis, unspecified site; Z88.8 Allergy status to other drugs, medicaments and biological substances
CPT/HCPCS: 36415; 71045; 80048; 80053; 80061; 81001; 83690; 83735; 83880; 84443; 84484; 85025; 85610; 87086; 93005; 94640; 94760; 96374; 96375; 99285; J2270; J2405; J3475; G0378; J7613; J7626

== ENCOUNTER 2020-12-12 07:56 | Emergency (ER) | payer OTHER ==
[~2020-12-12] VITALS: Ht 162.6 cm; Wt 130.0 kg
[~2020-12-12 07:56] MED LIST changes: +ALBU2.5V5 NEB; +AMLO-186 PO; -AMLO5TAB10 PO; +APIX5TAB PO; -ASPI-612 PO; +ASPI-886 PO; +BUDE10.2 IH; +HYDR-2869 PO; -ISOS30TA4 PO; +ISOS30TA68 PO; +LISI10TA16 PO; -LISI10TA2 PO; -MONT10TA11 PO; +MONT10TA20 PO; +OXYC-325 PO; +SERT-268 PO; -SERT100T8 PO; +SPIR50TA PO
--- NOTE | 2020-12-12 09:13 | RAD ---
XR CHEST 1V 12/12/2020 9:02 AM INDICATION: Chest pain COMPARISON: 11/17/2020 TECHNIQUE: Portable frontal view of the chest is provided. FINDINGS: The cardiomediastinal silhouette is similar in appearance. Left chest wall cardiac device is identifi ed with leads projecting over the right atrium, right ventricle and coronary sinus. Mild pulmonary vascular congestion. No significant pleural effusions. There is improved aeration of t he lung bases compared to prior examination with resolution of bibasilar subsegmental atelectasis. No pneumothorax. No suspicious osseous abnormality. IMPRESSION: Mild pulmonary vascular congestion with stable cardiomegaly as may be seen with congestive heart fail ure. Electronically signed by: Perla Brewster MD (12/12/2020 9:11 AM) [id number]
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
[2020-12-12] MEDS ORDERED: HYDROcodone/APAP 5/325MG 1 TAB TABLET PO ONE (10:30)
[2020-12-12 10:49] LABS: BASO # 0.1 x10^3/uL (0.0-0.2); BASO % 1 % (0-3); EOS # 0.2 x10^3/uL (0.0-0.7); EOS % 2 % (0-3); HEMOGLOBIN 14.5 g/dL (12.0-15.5); LYMPH # 1.3 x10^3/uL (1.0-4.8); LYMPH % 14 % (24-48); MEAN CORPUSCULAR HEMOGLOBIN 28 pg (25-35); MEAN CORPUSCULAR HGB CONC 33 g/dL (31-37); MEAN CORPUSCULAR VOLUME 83 fL (79-100); MONO # 0.8 x10^3/uL (0.0-1.1); MONO % 9 % (0-9); NEUT # 6.7 x10^3/uL (1.8-7.7); NEUT % 74 % (31-73); PLATELET COUNT 187 x10^3/uL (140-400); RED BLOOD COUNT 5.29 x10^6/uL (3.50-5.40); RED CELL DISTRIBUTION WIDTH 15.8 % (11.5-14.5)
[2020-12-12 11:00] LABS: GFR 70.7; POTASSIUM 3.9 mmol/L (3.5-5.1)
[2020-12-12 11:08] LABS: ALBUMIN 3.3 g/dL (3.4-5.0); ALBUMIN/GLOBULIN RATIO 0.8 (1.0-1.7); TOTAL BILIRUBIN 0.6 mg/dL (0.2-1.0); TOTAL PROTEIN 7.3 g/dL (6.4-8.2)
[2020-12-12] MEDS ORDERED: HYDR-2761 PO (11:27)
[2020-12-12] MEDS ORDERED: IBUP-1007 PO (11:27)
[2020-12-12] MEDS ORDERED: CYCL10TA2 PO (11:27)
[2020-12-12 12:04] VITALS: BP 193/110
--- NOTE | 2020-12-12 17:48 | EKG ---
[facility] [address] [place] [address] Test Date: 2020-12-12 Test Time: 08:05:48 Pat Name: PASCALE MACDONALD Department: Room: Gender: F Expediter: : 1970 Requested By: PJ PINEDO Order Number: [id number] Reading MD: Measurements Intervals [place] Rate: 63 P: 65 LA: 128 QRS: 87 QRSD: 162 T: 134 QT: 516 QTc: 532 Interpretive Statements SINUS RHYTHM LEFT ATRIAL ABNORMALITY NON SPECIFIC INTRAVENTRICULAR BLOCK ABNORMAL ECG RI6.02 No previous ECG available for comparison
== END 2020-12-12 12:34 | disposition home or self-care (01) ==
LOC: ER 07:56
DX: S20.219A Contusion of unspecified front wall of thorax, initial encounter (principal); S10.91XA Abrasion of unspecified part of neck, initial encounter; I11.0 Hypertensive heart disease with heart failure; I50.9 Heart failure, unspecified; J44.9 Chronic obstructive pulmonary disease, unspecified; F17.200 Nicotine dependence, unspecified, uncomplicated; Z95.0 Presence of cardiac pacemaker; Y08.89XA Assault by other specified means, initial encounter; Y93.89 Activity, other specified; Y92.89 Other specified places as the place of occurrence of the external cause; Y99.8 Other external cause status
CPT/HCPCS: 36415; 71045; 80053; 84484; 85025; 93005; 99285-25

== ENCOUNTER 2021-09-17 11:36 | Emergency (ER) | payer OTHER ==
[~2021-09-17] VITALS: Ht 162.6 cm; Wt 117.1 kg
[~2021-09-17 11:36] MED LIST changes: +CYCL10TA19 PO; +HYDR-2761 PO; +IBUP-1007 PO; +MONT-38 PO; -MONT10TA20 PO
[2021-09-17 11:51] VITALS: BP 208/81
[2021-09-17] MEDS ORDERED: IBUP-1007 PO (13:13)
[2021-09-17] MEDS ORDERED: HYDR-2761 PO (13:13)
[2021-09-17] MEDS ORDERED: CLIN-94 PO (13:13)
--- NOTE | 2021-09-17 13:14 | PHYS DOC ---
Past Medical History Past Medical History: Angina, Anxiety, Arthritis, Asthma, CHF, COPD, Depr ession, Hypertension Additional Past Medical Histor: PE Past Surgical History: Hysterectomy, Knee Replacement, Pacemaker, Tubal ligation Additional Past Surgical Histo: Bilateral Knee Smoking Status: Current Every Day Smoker Alcohol Use: Rarely Drug Use: None General Adult EDM: Chief Complaint: DENTAL PROBLEM HPI: HPI: Patient is a 51-year-old female who presents today with facial pain and swelling. Patient states that approximately 1 week ago she had a filling on her upper right jaw that fell out and she states she has no primary dentist and she has no way of getting this repaired at this time. Patient denies fever or chills, chest pain, nausea vomiting, she states she is able to tolerate by mouth fluid as well. Review of Systems: Review of Systems: Constitutional: Denies fever or chills. [] Eyes: Denies change in visual acuity. [] HENT: Right upper jaw pain and swelling Respiratory: Denies cough or shortness of breath. [] Cardiovascular: Denies chest pain or edema. [] GI: Denies abdominal pain, nausea, vomiting, bloody stools or diarrhea. [] : Denies dysuria. [] Musculoskeletal: Denies back pain or joint pain. [] Integument: Denies rash. [] Neurologic: Denies headache, focal weakness or sensory changes. [] Endocrine: Denies polyuria or polydipsia. [] Lymphatic: Denies swollen glands. [] Psychiatric: Denies depression or anxiety. [] Heart Score: C/O Chest Pain: No Risk Factors: Risk Factors: DM, Current or recent (<one month) smoker, HTN, HLP, family history of CAD, obesity. Risk Scores: Score 0 - 3: 2.5% MACE over next 6 weeks - Discharge Home Score 4 - 6: 20.3% MACE over next 6 weeks - Admit for Clinical Observation Score 7 - 10: 72.7% MACE over next 6 weeks - Early Invasive Strategies Allergies: Allergies: Allergies Coded Allergies Type Severity Reaction Last Updated Verified iodine Allergy Severe IV dye, anaphylaxis 01/29/14 Yes isosorbide Allergy Mild 03/21/16 Yes Physical Exam: PE: Constitutional: Well developed, well nourished, mild distress, non-toxic appearance. [] HENT: Right facial swelling noted no redness or warmth noted, she has a tooth that is missing and filling in the right upper molar, no drainage no gum swelling noted, tympanic membrane is within normal limits no swelling in the mastoid area Eyes: PERRLA, EOMI, conjunctiva normal, no discharge. [] Neck: Normal range of motion, no tenderness, supple, no stridor. [] Cardiovascular:Heart rate regular rhythm, no murmur [] Lungs & Thorax: Bilateral breath sounds clear to auscultation [] Abdomen: Bowel sounds normal, soft, no tenderness, no masses, no pulsatile mass es. [] Skin: Warm, dry, no erythema, no rash. [] Back: No tenderness, no CVA tenderness. [] Extremities: No tenderness, no cyanosis, no clubbing, ROM intact, no edema. [] Neurologic: Alert and oriented X 3, normal motor function, normal sensory function, no focal deficits noted. [] Psychologic: Affect normal, judgement normal, mood normal. [] Current Patient Data: Vital Signs: Vital Signs Date Time Temp Pulse Resp B/P (MAP) Pulse Ox O2 Delivery O2 Flow Rate FiO2 09/17/21 11:51 98.0 80 18 208/81 (123) 99 Room Air 98.0 EKG: EKG: [] Radiology/Procedures: Radiology/Procedures: [] Course & Med Decision Making: Course & Med Decision Making Pertinent Labs and Imaging studies reviewed. (See chart for details) Patient is able to swallow her saliva she has no airway issues at this time, patient states she does not have a primary dentist we will provide a list of dental clinics that she can contact to see about getting this tooth repaired, patient will be placed on clindamycin as well as be given Motrin 600 mg to be taken every 6 hours as needed for pain. Patient verbalized understanding of this and agreeable with plan of care. Selam Disclaimer: Selam Disclaimer: This electronic medical record was generated, in whole or in part, using a voice recognition dictation system. Departure Departure Impression: Primary Impression: Pain, dental Disposition: HOME / SELF CARE / HOMELESS Condition: STABLE Referrals: NO PCP (PCP) Patient Instructions: Dental Pain Additional Instructions: Hydrocodone take 1 tablet every 6 hours as needed for severe pain use with caution may cause drowsiness Motrin 600 mg take 1 tablet every 6 hours as needed for mild to moderate pain, take with food may cause stomach upset if taken on an empty stomach Clindamycin 300 mg take 1 tablet every 8 hours for the next 10 days Follow-up with the dentist on the dental clinic list as soon as possible to have this tooth repaired. Return here to the emergency department should you have facial swelling associated with warmth and redness in your face, development of a fever, or inability to swallow your saliva. Scripts Hydrocodone Bit/Acetaminophen (HYDROCODONE-APAP 5-325 ) 1 Tab Tablet 1 TAB PO PRN Q6HRS PRN for PAIN, #5 TAB 0 Refills Prov: MECHE CARVALHO APRN 09/17/21 Clindamycin Hcl (CLINDAMYCIN HCL) 300 Mg Capsule 1 CAP PO TID, #30 CAP Prov: MECHE CARVALHO PHOTOGRAPHIC PROCESSOR 09/17/21 Ibuprofen (IBUPROFEN) 600 Mg Tablet 600 MG PO PRN Q6HRS PRN for INFLAMMATION, #30 TAB Prov: MECHE CARVALHO APRN 09/17/21 MECHE CARVALHO APRN September 17, 2021 13:14
== END 2021-09-17 13:36 | disposition home or self-care (01) ==
LOC: ER 11:36
DX: K08.89 Other specified disorders of teeth and supporting structures (principal); J44.1 Chronic obstructive pulmonary disease with (acute) exacerbation; I11.0 Hypertensive heart disease with heart failure; I50.9 Heart failure, unspecified; F17.200 Nicotine dependence, unspecified, uncomplicated; Z95.0 Presence of cardiac pacemaker; Z88.8 Allergy status to other drugs, medicaments and biological substances
CPT/HCPCS: 99283